=== PATIENT | male | born 1960 | race Caucasian/White ===

== ENCOUNTER → 2019-02-02 16:15 | Outpatient (CLI) | payer OTHER, SELFPAY ==
[2019-02-02 16:49] LABS: Add Manual Diff / Slide Review NO; Basophils Absolute Auto 0 /uL (0-100); Basophils Percent Auto 0.4 % (0-2); Eosinophils Absolute Auto 200 /uL (0-450); Hematocrit 48.2 % (41-53); Lymphocytes Absolute Auto 3100 /uL (1100-4500); Lymphocytes Percent Auto 37.4 % (25-40); Mean Corpuscular HGB Conc 33.1 % (30-36); Mean Corpuscular Hemoglobin 29.3 PG (26-34); Mean Corpuscular Volume 88.5 fL (80-100); Monocytes Absolute Auto 700 /uL (0-900); Monocytes Percent Auto 9.1 % (3-14); Neutrophils Absolute Auto 4100 /uL (1500-7000); Neutrophils Percent Auto 50.1 % (50-75); Platelet Count 214 X10^3/uL (150-400); Red Blood Cell Count 5.44 X10^6/uL (4.5-5.9); Red Cell Distribution Width 14.3 % (11.6-14.8); White Blood Cell Count 8.2 X10^3/uL (4.5-11.0)
[2019-02-02 18:13] LABS: Alanine Aminotransferase 45 IU/L (21-72); Albumin 4.7 g/dL (3.5-5.0); Albumin Globulin Ratio 1.6 (1.0-2.8); Alkaline Phosphatase 87 U/L (38-126); Aspartate Aminotransferase 43 IU/L (17-59); BUN Creatinine Ratio 21.3 (6-22); Bilirubin Total 0.5 mg/dL (0.2-1.3); Blood Urea Nitrogen 17 mg/dL (9-20); Calcium 9.1 mg/dL (8.4-10.2); Carbon Dioxide 26 mmol/L (22-32); Chloride 102 mmol/L (98-107); Cholesterol 182 mg/dL (140-199); Estimated Glomerular Filt Rate > 60.0 mL/min (>60); Globulin 2.9 g/dL (1.7-4.1); Glucose 82 mg/dL (70-100); HDL Cholesterol 51 mg/dL (40-60); HEMOLYSIS < 15 (0-50); LDL Cholesterol Calculated 113 mg/dL (<100); Potassium 4.2 mmol/L (3.4-5.1); Sodium 139 mmol/L (137-145); Total Protein 7.6 g/dL (6.3-8.2); Triglycerides 89 mg/dL (35-150)
[2019-02-02 18:43] LABS: Prostate Specific Antigen Scrn 1.94 ng/mL (0.1-4.0)
[2019-02-02 19:01] LABS: Hep C Virus Ab w/Reflex Quant NEGATIVE s/c (NEGATIVE)
== END ==
PROVIDERS: PCP Internal Medicine; Visit Provider Internal Medicine
DX: Z00.00 Encounter for general adult medical examination without abnormal findings (principal); Z12.5 Encounter for screening for malignant neoplasm of prostate; Z11.59 Encounter for screening for other viral diseases; R53.83 Other fatigue; N40.1 Benign prostatic hyperplasia with lower urinary tract symptoms; R35.1 Nocturia
CPT/HCPCS: 36415; 80053; 80061; 85025; 86803; G0103

== ENCOUNTER 2021-10-27 18:27 | Emergency (ER) | payer OTHER, SELFPAY ==
[2021-10-27 18:30] VITALS: BP 168/92; PULSE 67; RESP 18; TEMP 36.6; O2SAT 97; BMI 27.8
--- NOTE | 2021-10-27 19:47 | ED_ITS ---
HPI - Epistaxis General Chief complaint: Nasal Problem Stated complaint: Chronic Nose Bleed Time Seen by Provider: 10/27/21 19:41 Source: patient Mode of arrival: Ambulatory History of Present Illness HPI Narrative: 61-year-old gentle with no significant medical history and no diagnosed blood pressure issues presents with 2 weeks of intermittent epistaxis. He does not describe any recent upper respiratory infection, no nasal sprays no picking or trauma. He notes that he will have minor amount of oozing in over the last 2 days he has had 2 episodes each of fairly significant bleeding eventually controlled with pressure. He has had symptoms like this previously and had a bleeding area identified and cauterized that seem to work for a number of years. He describes otherwise clotting well, no frequent bruising no bleeding from his gums no black or bloody stools he is not on blood thinners. He has had no recent headaches, fever, cough, abdominal pain, vomiting or diarrhea. Related Data Allergies Allergy/AdvReac Type Severity Reaction Status Date / Time No Known Drug Allergies Allergy Verified 10/27/21 18:35 Review of Systems Review of Systems Narrative: Remainder of complete review of systems is otherwise unremarkable except for that included in the HPI. Patient History Social History Smoking Status: Never smoker Smoking Status: Never smoker alcohol intake frequency: a few times a week Substance Use Type: does not use Exam Narrative Exam Narrative: General: Healthy appearing, in no acute distress. Able to give a complete and coherent history. Well-nourished well-developed HEENT: Moist mucous membranes, normal sclera with reactive pupils, nasal mucosa is examined and seems relatively unremarkable. No blood clots or obvious area of bleeding are appreciated Neck: No JVD, supple Respiratory: Lungs are clear to auscultation, no wheezing no rales no rhonchi. Full and symmetrical air movement Cardiac: Regular rate and rhythm no murmurs no bruits Skin: Warm and dry, no rashes Neurologic: Grossly neurologically intact with no obvious asymmetries or abnormalities Extremities: No trauma, well perfused Psych: Cooperative, appropriate insight and affect Initial Vital Signs Initial Vital Signs: Vital Signs Temperature 97.9 F 10/27/21 18:30 Pulse Rate 67 10/27/21 18:30 Respiratory Rate 18 10/27/21 18:30 Blood Pressure 168/92 H 10/27/21 18:30 Pulse Oximetry 97 10/27/21 18:30 Course Orders Ordered: ED Orders 10/27/21 20:00 CBC with manual diff [Complete Blood Count MAN DIFF] Stat CMP [Comprehensive Metabolic Panel] Stat Vital Signs Vital signs: Vital Signs - 8 hr 10/27/21 18:30 Temperature 97.9 F Pulse Rate 67 Respiratory Rate 18 Blood Pressure 168/92 H Pulse Oximetry 97 MDM - Epistaxis Lab Data Result diagrams: 10/27/21 20:00 10/27/21 20:00 Labs: Lab Results 10/27/21 10/27/21 Range/Units 20:00 20:00 WBC 7.8 (4.5-11.0) X10^3/uL RBC 5.13 (4.5-5.9) X10^6/uL Hgb 15.4 (13.5-17.5) g/dL Hct 44.9 (41-53) % MCV 87.5 (80-100) fL MCH 30.0 (26-34) PG MCHC 34.3 (30-36) % RDW 14.3 (11.6-14.8) % Plt Count 203 (150-400) X10^3/uL Sodium 137 (137-145) mmol/L Potassium 4.5 (3.4-5.1) mmol/L Chloride 102 (98-107) mmol/L Carbon Dioxide 29 (22-32) mmol/L BUN 14 (9-20) mg/dL Creatinine 0.82 (0.66-1.25) mg/dL Estimated GFR > 60.0 (>60) mL/min BUN/Creatinine Ratio 17.1 (6-22) Glucose 92 (80-110) mg/dL Calcium 9.2 (8.4-10.2) mg/dL Total Bilirubin 0.5 (0.2-1.3) mg/dL AST 41 (17-59) IU/L ALT 24 (<50) IU/L Alkaline Phosphatase 83 (38-126) U/L Total Protein 7.4 (6.3-8.2) g/dL Albumin 4.5 (3.5-5.0) g/dL Globulin 2.9 (1.7-4.1) g/dL Albumin/Globulin Ratio 1.6 (1.0-2.8) MDM Narrative Medical decision making narrative: 61-year-old gentleman with 2 weeks of intermittent nose bleeds with 2 over last 48 hours of been more prolific. He had similar issues before that resolved nicely for a number of years after cautery. Comes in for further evaluation. Blood pressure is slightly elevated will ask him to check it as an outpatient. I do not see any obvious points or sites to cauterize at this time and he is not having any active bleeding. No evidence of bleeding dyscrasias, chemistry or platelet abnormalities. Reassurance is given recommended that he follow-up with ENT. He is safe for home discharge Discharge Plan Departure Patient Disposition: Home Clinical Impression: Epistaxis Instructions: DI for Nosebleed Activity Restrictions/Additional Instructions: Thank you for coming in today On your exam in the emergency room today I did not see any spots that look like they needed to be cauterized. Your blood work was very reassuring normal. No obvious bleeding abnormalities and a normal platelet count. Your blood pressure was slightly elevated and this might be contributing to the nosebleeds. I would recommend that you buy a blood pressure cuff and check your blood pressures daily to see if this truly is a diagnosis that needs to be further addressed. Please take in the daily blood pressures to review with her primary care physician. Regarding the nosebleeds, following up with [facility] ear nose and throat ph ysicians at [phone] would be appropriate. That you nose and throat surgeons can look deeper anterior nose and have the appropriate tools to see the anatomy a bit better and will be able to do any cautery if they think that that is appropriate. In the meantime, I would recommend getting some Afrin. If your having an acute nose bleed using a score to Afrin to the area will help constrict the blood vessel so that the bleeding stops sooner. If you can not get the bleeding to stop, you do need to come back to the emergency department I wish you the best Referrals: Vero Danielson MD [Primary Care Provider] -
[2021-10-27 20:13] LABS: Hematocrit 44.9 % (41-53); Hemoglobin 15.4 g/dL (13.5-17.5); Mean Corpuscular HGB Conc 34.3 % (30-36); Mean Corpuscular Volume 87.5 fL (80-100); Platelet Count 203 X10^3/uL (150-400); Red Blood Cell Count 5.13 X10^6/uL (4.5-5.9); Red Cell Distribution Width 14.3 % (11.6-14.8); White Blood Cell Count 7.8 X10^3/uL (4.5-11.0)
[2021-10-27 20:22] LABS: Alanine Aminotransferase 24 IU/L (<50); Albumin 4.5 g/dL (3.5-5.0); Albumin Globulin Ratio 1.6 (1.0-2.8); Alkaline Phosphatase 83 U/L (38-126); Aspartate Aminotransferase 41 IU/L (17-59); BUN Creatinine Ratio 17.1 (6-22); Bilirubin Total 0.5 mg/dL (0.2-1.3); Blood Urea Nitrogen 14 mg/dL (9-20); Calcium 9.2 mg/dL (8.4-10.2); Carbon Dioxide 29 mmol/L (22-32); Chloride 102 mmol/L (98-107); Estimated Glomerular Filt Rate > 60.0 mL/min (>60); Globulin 2.9 g/dL (1.7-4.1); Glucose 92 mg/dL (80-110); HEMOLYSIS < 15 (0-50); Potassium 4.5 mmol/L (3.4-5.1); Sodium 137 mmol/L (137-145); Total Protein 7.4 g/dL (6.3-8.2)
[2021-10-27 20:43] VITALS: BP 139/67; PULSE 59; RESP 16; O2SAT 99
[2021-10-27 20:49] LABS: Neutrophils Absolute Manual 4290 /uL (3000-5900); RBC Morphology Normal Morphology; Total Cells Counted 100
== END 2021-10-27 21:03 | disposition home or self-care (01) ==
PROVIDERS: Emergency Provider Emergency Medicine; PCP Internal Medicine
DX: R04.0 Epistaxis (principal)
CPT/HCPCS: 36415; 80053; 85025; 99283

== ENCOUNTER → 2024-03-03 15:43 | Outpatient (CLI) | payer OTHER, SELFPAY ==
[2024-03-05 09:56] LABS: PSA, Total 2.3 ng/mL (0.0-4.0)
== END ==
PROVIDERS: PCP Internal Medicine; Referring Provider Internal Medicine; Visit Provider Internal Medicine
DX: N40.1 Benign prostatic hyperplasia with lower urinary tract symptoms (principal); R39.11 Hesitancy of micturition
CPT/HCPCS: 36415; 84153; 84154

== ENCOUNTER → 2024-03-03 16:43 | Outpatient (CLI) | payer OTHER, SELFPAY ==
--- NOTE | 2024-03-03 16:47 | DI.RAD.S_ITS ---
PROCEDURE: XR THORACIC SPINE 3V INDICATIONS: LOW BACK PAIN TECHNIQUE: 3 views of the thoracic spine were acquired. COMPARISON: None. FINDINGS: Bones: No acute fractures or dislocations. No suspicious bony lesions. 12 pairs of ribs are noted, and appear intact where visualized. Mild degenerative endplate changes. Soft tissues: No paravertebral stripe thickening. IMPRESSION: No acute osseous abnormality. If symptoms persist or if there is continued clinical concern, cross-sectional imaging such as MRI or CT may be helpful for further evaluation. Approved by: Caleb Jonas M.D. on 03/03/2024 at 20:39
== END ==
PROVIDERS: PCP Internal Medicine; Referring Provider Internal Medicine; Visit Provider Internal Medicine
DX: M54.6 Pain in thoracic spine (principal); N40.1 Benign prostatic hyperplasia with lower urinary tract symptoms; R39.11 Hesitancy of micturition
CPT/HCPCS: 36415; 72072; 84153; 84154

== ENCOUNTER → 2025-02-23 07:52 | Outpatient (CLI) | payer OTHER, SELFPAY ==
[2025-02-23 08:36] LABS: Add Manual Diff / Slide Review NO; Basophils Absolute Auto 0 /uL (0-100); Basophils Percent Auto 0.5 % (0-2); Eosinophils Absolute Auto 300 /uL (0-450); Eosinophils Percent Auto 4.7 % (2-4); Hematocrit 41.4 % (41-53); Hemoglobin 13.8 g/dL (13.5-17.5); Lymphocytes Absolute Auto 1900 /uL (1100-4500); Lymphocytes Percent Auto 32.7 % (25-40); Mean Corpuscular HGB Conc 33.3 % (30-36); Mean Corpuscular Hemoglobin 27.9 PG (26-34); Mean Corpuscular Volume 83.6 fL (80-100); Monocytes Absolute Auto 600 /uL (0-900); Monocytes Percent Auto 9.9 % (3-14); Neutrophils Absolute Auto 3000 /uL (1500-7000); Neutrophils Percent Auto 52.2 % (50-75); Platelet Count 218 X10^3/uL (150-400); Red Blood Cell Count 4.95 X10^6/uL (4.5-5.9); White Blood Cell Count 5.8 X10^3/uL (4.5-11.0)
[2025-02-23 08:56] LABS: Alanine Aminotransferase 32 IU/L (<50); Albumin 4.6 g/dL (3.5-5.0); Albumin Globulin Ratio 1.6 (1.0-2.8); Alkaline Phosphatase 89 U/L (38-126); Aspartate Aminotransferase 42 IU/L (17-59); BUN Creatinine Ratio 16.5 (6-22); Bilirubin Total 0.7 mg/dL (0.2-1.3); Blood Urea Nitrogen 15 mg/dL (9-20); Calcium 9.4 mg/dL (8.4-10.2); Carbon Dioxide 25 mmol/L (22-32); Chloride 104 mmol/L (98-107); Cholesterol 184 mg/dL (140-199); Estimated Glomerular Filt Rate > 60 mL/min (>60); Globulin 2.8 g/dL (1.7-4.1); Glucose 96 mg/dL (80-110); HDL Cholesterol 48 mg/dL (40-60); HEMOLYSIS < 15 (0-50); LDL Cholesterol Calculated 116 mg/dL (<100); Potassium 4.5 mmol/L (3.4-5.1); Sodium 137 mmol/L (137-145); Total Protein 7.4 g/dL (6.3-8.2); Triglycerides 100 mg/dL (35-150)
[2025-02-23 09:26] LABS: Prostate Specific Antigen 3.75 ng/mL (0.10-4.00)
[2025-02-23 09:28] LABS: Testosterone 573 ng/dL (71.8-623)
[2025-02-23 09:38] LABS: HIV 1 & 2 Ab/Ag 4th Gen Combo NEGATIVE (NEGATIVE)
[2025-02-24 05:41] LABS: Insulin Level Total 11.6 uIU/mL (2.6-24.9)
== END ==
PROVIDERS: PCP Internal Medicine; Referring Provider Internal Medicine; Visit Provider Internal Medicine
DX: Z13.6 Encounter for screening for cardiovascular disorders (principal); R53.83 Other fatigue; N40.1 Benign prostatic hyperplasia with lower urinary tract symptoms; Z11.4 Encounter for screening for human immunodeficiency virus [HIV]; R39.12 Poor urinary stream
CPT/HCPCS: 36415; 80053; 80061; 83525; 84153; 84403; 85025; 87389

== ENCOUNTER 2025-03-11 08:57 | Observation (INO) | payer OTHER, SELFPAY ==
[2025-03-11] VITALS (21 sets, daily range): BP systolic 128–197; BP diastolic 69–97; PULSE 61–82; RESP 10–25; TEMP 36.3–36.5; O2SAT 96–100; BMI 27.8
[2025-03-11 09:46] LABS: Urine Volume 10mL (spun)
[2025-03-11] MEDS: MORPHINE 2 MG/ML INJ IV (09:46)
[2025-03-11] MEDS: SODIUM CHLORIDE 0.9% 1,000 ML 1000 ML IV (09:47)
[2025-03-11 09:50] LABS: Bacteria Urine None Seen; Culture Indicated Urine Specimen Cultured; RBC Urine 30-100/HPF (0-5/HPF); Squamous Epithelial Cell Urine None Seen (0-5/HPF); WBC Urine 1-5/HPF (0-5/HPF)
[2025-03-11 09:51] LABS: Add Manual Diff / Slide Review NO; Basophils Absolute Auto 0 /uL (0-100); Basophils Percent Auto 0.4 % (0-2); Eosinophils Absolute Auto 200 /uL (0-450); Eosinophils Percent Auto 2.4 % (2-4); Hematocrit 42.6 % (41-53); Hemoglobin 14.3 g/dL (13.5-17.5); Lymphocytes Absolute Auto 2100 /uL (1100-4500); Lymphocytes Percent Auto 26.6 % (25-40); Mean Corpuscular HGB Conc 33.7 % (30-36); Mean Corpuscular Hemoglobin 27.9 PG (26-34); Monocytes Absolute Auto 600 /uL (0-900); Monocytes Percent Auto 7.9 % (3-14); Neutrophils Absolute Auto 4900 /uL (1500-7000); Neutrophils Percent Auto 62.7 % (50-75); Platelet Count 233 X10^3/uL (150-400); Red Blood Cell Count 5.14 X10^6/uL (4.5-5.9); White Blood Cell Count 7.8 X10^3/uL (4.5-11.0)
[2025-03-11 10:02] LABS: Alanine Aminotransferase 27 IU/L (<50); Albumin 4.8 g/dL (3.5-5.0); Albumin Globulin Ratio 1.5 (1.0-2.8); Alkaline Phosphatase 81 U/L (38-126); Aspartate Aminotransferase 41 IU/L (17-59); BUN Creatinine Ratio 13.2 (6-22); Bilirubin Total 0.6 mg/dL (0.2-1.3); Blood Urea Nitrogen 14 mg/dL (9-20); Calcium 9.4 mg/dL (8.4-10.2); Carbon Dioxide 26 mmol/L (22-32); Chloride 103 mmol/L (98-107); Estimated Glomerular Filt Rate > 60 mL/min (>60); Globulin 3.1 g/dL (1.7-4.1); Glucose 134 mg/dL (70-99); HEMOLYSIS < 15 (0-50); Potassium 3.7 mmol/L (3.4-5.1); Sodium 139 mmol/L (137-145); Total Protein 7.9 g/dL (6.3-8.2)
--- NOTE | 2025-03-11 10:11 | ED.BACK ---
HPI - Back Pain/Injury General Chief Complaint: Back Pain/Injury Stated Complaint: Low Left Back Pain Time Seen by Provider: 03/11/25 10:06 Source: patient History of Present Illness HPI Narrative: Patient here for sudden onset left flank pain radiating left lower quadrant 7:00 p.m. last night. Has had off and on hematuria which he states is not new. Has had nausea but no vomiting. Pain is nonreproducible. No urinary urgency or frequency. No prior history of kidney stones. No prior history of aortic dissection or aneurysm. 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 Related Data Home Medications Medication Instructions Recorded Confirmed clobetasol 0.05 % topical ointment topical BID PRN Rash 03/11/25 ibuprofen 200 mg capsule 400 mg PO Q6H 03/11/25 03/11/25 Previous Rx's Medication Instructions Recorded oxycodone 5 mg tablet 5 mg PO Q8H PRN pain (scale score 03/11/25 7-10) #10 tabs tamsulosin 0.4 mg capsule 0.4 mg PO DAILY #60 caps 03/11/25 Allergies Allergy/AdvReac Type Severity Reaction Status Date / Time No Known Drug Allergies Allergy Verified 03/13/25 05:18 Review of Systems Review of Systems Narrative: GENERAL: Negative chills, fatigue, malaise, fever, sweats. HEENT: Negative sinus pain, ear pain, sore throat RESPIRATORY: Negative dyspnea, cough CARDIOVASCULAR: Negative chest pain, palpitations GASTROINTESTINAL: Negative vomiting, positive flank pain, nausea, abdominal pain : Negative dysuria, frequency, hematuria MUSCULOSKELETAL: Negative muscle or bony pain SKIN: Negative rash, skin lesions NEUROLOGIC: Negative weakness, numbness ROS Unobtainable: All systems reviewed & are unremarkable except as noted in HPI and below Patient History Social History household members: spouse alcohol intake: current Smoking Status: Unknown if ever smoked alcohol intake frequency: a few times a week Exam Narrative Exam Narrative: GENERAL: in no distress, not toxic not dyspneic HEAD: Normocephalic. EYES: Pupils equal round ENT: Mucous membranes moist. NECK: Trachea midline. CARDIOVASCULAR: Regular rate and rhythm RESPIRATORY: Clear to auscultation. Breath sounds equal bilaterally. No wheezes, rales, or rhonchi. GASTROINTESTINAL: Abdomen soft, non-tender, abdomen is nontender no peritoneal signs no guarding no rebound no CVA tenderness no pain out of portion exam. Bowel sounds are present. EXTREMITIES: No gross deformities. BACK: No flank tenderness. NEURO: AOx4. Clear speech SKIN: Warm and dry PSYCH: Not anxious, is cooperative Initial Vital Signs Initial Vital Signs: Vital Signs Temperature 97.6 F 03/11/25 09:27 Pulse Rate 66 03/11/25 09:27 Respiratory Rate 16 03/11/25 09:27 Blood Pressure 197/97 H 03/11/25 09:27 Pulse Oximetry 100 03/11/25 09:27 Oxygen Delivery Method Room Air 03/11/25 09:27 Course Orders Ordered: Discontinued Medications Acetaminophen (Acetaminophen 325 Mg Tablet) 975 mg PO Q6H PRN PRN Reason: Pain, Mild (1-3) Fentanyl (Fentanyl 100 Mcg/2 Ml Inj) 100 mcg IV NOW ONE Stop: 03/11/25 10:10 Last Admin: 03/11/25 10:14 Dose: 100 mcg Documented By: CATHI Fentanyl (Fentanyl 100 Mcg/2 Ml Inj) 0 mcg IV Q5MIN PRN PRN Reason: Pain, Severe (7-10) Hydromorphone HCl (Hydromorphone 1 Mg Inj) 0 mg IV Q5MIN PRN PRN Reason: Pain, Mild (1-3) Hydromorphone HCl (Hydromorphone 1 Mg Inj) 0.5 mg IV Q2H PRN PRN Reason: Pain, Severe (7-10) Hydroxyzine HCl (Hydroxyzine 50 Mg/Ml Inj) 25 mg IM NOW PRN PRN Reason: Pain, Mild (1-3) Sodium Chloride (Normal Saline 0.9%) 1,000 mls @ 1,000 mls/hr IV BOLUS ONE Stop: 03/11/25 10:32 Last Infusion: 03/11/25 11:23 Dose: Infused Documented By: Admin: 03/11/25 09:47 Dose: 1,000 mls/hr Documented By: BLAKE Cefazolin Sodium/Dextrose (Ancef) 100 mls @ 200 mls/hr IV NOW ONE Stop: 03/11/25 13:44 Last Admin: 03/11/25 15:32 Dose: 200 mls/hr Documented By: TED Lactated Ringer's (Lactated Ringers) 1,000 mls @ 42 mls/hr IV CONT EMILY Last Admin: 03/11/25 13:44 Dose: 42 mls/hr Documented By: TC Acetaminophen (Ofirmev) 1,000 mg in 100 mls @ 400 mls/hr IV NOW ONE Stop: 03/11/25 16:03 Last Infusion: 03/11/25 16:44 Dose: Infused Documented By: Admin: 03/11/25 15:47 Dose: 400 mls/hr Documented By: TED Iopamidol (Iopamidol 30 Ml Vial) 30 ml INJ NOW ONE Stop: 03/11/25 15:50 Last Admin: 03/11/25 15:49 Dose: 30 ml Documented By: BB Ketorolac Tromethamine (Ketorolac 30 Mg/Ml Vial) 15 mg IV NOW ONE Stop: 03/11/25 11:10 Last Admin: 03/11/25 11:29 Dose: 15 mg Documented By: AI Metoclopramide HCl (Metoclopramide 10 Mg/2 Ml Inj) 10 mg IV NOW PRN PRN Reason: Nausea And Vomiting Morphine Sulfate (Morphine 2 Mg/Ml Inj) 2 mg IV NOW ONE Stop: 03/11/25 09:34 Last Admin: 03/11/25 09:46 Dose: 2 mg Documented By: RB Ondansetron HCl (Ondansetron 4 Mg/2 Ml Inj) 4 mg IV NOW ONE Stop: 03/11/25 10:16 Last Admin: 03/11/25 10:17 Dose: 4 mg Documented By: SPF Ondansetron HCl (Ondansetron 4 Mg/2 Ml Inj) 4 mg IV NOW PRN PRN Reason: Nausea And Vomiting Ondansetron HCl (Ondansetron 4 Mg/2 Ml Inj) 4 mg IV Q4H PRN PRN Reason: Nausea And Vomiting Oxycodone HCl (Oxycodone Ir 5 Mg Tablet) 5 mg PO PACUNOW PRN PRN Reason: Mild or moderate pain Oxycodone HCl (Oxycodone Ir 5 Mg Tablet) 5 mg PO Q4H PRN PRN Reason: Pain, Moderate (4-6) Oxycodone HCl (Oxycodone Ir 10 Mg Tablet) 10 mg PO Q4HR PRN PRN Reason: Pain, Severe (7-10) Prochlorperazine (Prochlorperazine 10 Mg/2 Ml Vial) 10 mg IV NOW ONE Stop: 03/11/25 11:42 Last Admin: 03/11/25 11:51 Dose: Not Given Documented By: ADILENE Tamsulosin HCl (Tamsulosin 0.4 Mg Capsule) 0.4 mg PO NOW ONE Stop: 03/11/25 11:13 Last Admin: 03/11/25 11:30 Dose: 0.4 mg Documented By: ADILENE Vital Signs Vital signs: Vital Signs - 8 hr 03/11/25 09:27 03/11/25 09:42 03/11/25 09:49 Temperature 97.6 F Pulse Rate 66 72 Respiratory Rate 16 Blood Pressure 197/97 H 196/91 H Pulse Oximetry 100 100 Oxygen Delivery Method Room Air 03/11/25 09:49 03/11/25 10:00 03/11/25 10:01 Temperature Pulse Rate 65 66 Respiratory Rate 20 14 Blood Pressure 193/81 H Pulse Oximetry 100 100 Oxygen Delivery Method 03/11/25 10:01 03/11/25 10:31 03/11/25 10:32 Temperature Pulse Rate 68 74 77 Respiratory Rate 17 21 20 Blood Pressure Pulse Oximetry 100 100 100 Oxygen Delivery Method 03/11/25 10:32 03/11/25 11:00 03/11/25 11:00 Temperature Pulse Rate 65 Respiratory Rate 16 Blood Pressure 170/88 H 147/72 H Pulse Oximetry 98 Oxygen Delivery Method Room Air 03/11/25 11:30 03/11/25 12:00 Temperature Pulse Rate 71 71 Respiratory Rate 20 20 Blood Pressure 143/82 H 135/69 Pulse Oximetry 98 96 Oxygen Delivery Method Room Air Room Air MDM - Back Pain/Injury Lab Data 03/11/25 09:40 03/11/25 09:40 Labs: Lab Results 03/11/25 03/11/25 Range/Units 09:31 09:40 WBC 7.8 (4.5-11.0) X10^3/uL RBC 5.14 (4.5-5.9) X10^6/uL Hgb 14.3 (13.5-17.5) g/dL Hct 42.6 (41-53) % MCV 83.0 (80-100) fL MCH 27.9 (26-34) PG MCHC 33.7 (30-36) % RDW 15.0 H (11.6-14.8) % Plt Count 233 (150-400) X10^3/uL Neut % (Auto) 62.7 (50-75) % Lymph % (Auto) 26.6 (25-40) % [place] % (Auto) 7.9 (3-14) % Eos % (Auto) 2.4 (2-4) % Baso % (Auto) 0.4 (0-2) % Neut # (Auto) 4900 (3254-4487) /uL Lymph # (Auto) 2100 (7259-2948) /uL [place] # (Auto) 600 (0-900) /uL Eos # (Auto) 200 (0-450) /uL Baso # (Auto) 0 (0-100) /uL Sodium 139 (137-145) mmol/L Potassium 3.7 (3.4-5.1) mmol/L Chloride 103 (98-107) mmol/L Carbon Dioxide 26 (22-32) mmol/L BUN 14 (9-20) mg/dL Creatinine 1.06 (0.66-1.25) mg/dL Estimated GFR > 60 (>60) mL/min BUN/Creatinine Ratio 13.2 (6-22) Glucose 134 H (70-99) mg/dL Calcium 9.4 (8.4-10.2) mg/dL Total Bilirubin 0.6 (0.2-1.3) mg/dL AST 41 (17-59) IU/L ALT 27 (<50) IU/L Alkaline Phosphatase 81 (38-126) U/L Total Protein 7.9 (6.3-8.2) g/dL Albumin 4.8 (3.5-5.0) g/dL Globulin 3.1 (1.7-4.1) g/dL Albumin/Globulin Ratio 1.5 (1.0-2.8) Urine RBC 30-100/hpf H (0-5/HPF) Urine WBC 1-5/hpf (0-5/HPF) Ur Squamous Epith Cells None seen (0-5/HPF) Urine Bacteria None seen (None) Ur Culture Indicated? Specimen cultured Vol Urine Centrifuged 10ml (spun) Urine Dip Bedside Urine Glucose Negative Bedside Urine Bilirubin - Negative Bedside Urine Ketone - Negative Urine Specific [place] 1.030 Bedside Urine Occult Blood +++ Bedside Urine pH 5.5 Bedside Urine Protein +/- 15 Bedside Urine Urobilinogen - Negative Bedside Urine Nitrite - Negative Bedside Urine Leukocytes +/- [address] scan - abdomen/pelvis: Radiologist's Impression: [address] [address] [address] Scan Report Signed Patient: James Rendon MR#: [id number] : 1960 Acct:[id number] Age/Sex: 64 / M Date of Service: 03/11/25 Loc: ED Accession Number: [id number] Procedure: CT abdomen pelvis w con Ordering Provider: Norbert Rogers MD PROCEDURE: CT ABDOMEN PELVIS W CON INDICATIONS: Left lower quadrant pain TECHNIQUE: After the administration of intravenous contrast, axial sections acquired from the lung bases to the pubic symphysis. Coronal and sagittal reformats were performed. For radiation dose reduction, the following was used: automated exposure control, adjustment of mA and/or kV according to patient size. COMPARISON: None. FINDINGS: Image quality: Diagnostic. Lower Chest: No significant findings. ABDOMEN: Liver: No solid mass. Gallbladder: No radiopaque gallstones or wall thickening. Biliary ducts: No biliary dilation. Pancreas: No ductal dilation. Spleen: Size is within normal limits. Adrenal Glands: No adrenal nodules. Kidneys and Ureters: 9 mm calculus is seen in the proximal left ureter at the ureteropelvic junction (1500 Hounsfield units). Mild left hydronephrosis. Additional 2 mm nonobstructing calculus at the inferior pole of the left kidney. Mild peripelvic fat stranding. No right hydronephrosis. No solid mass. No complex renal cystic lesion which requires follow up. Stomach and Bowel: Normal colonic caliber, without significant wall thickening. Normal appendix. Small bowel loops and stomach are unremarkable. Peritoneum: No abnormal intraperitoneal fluid. No free air. Ventral Wall: No significant ventral hernia. Abdominal Nodes: No retroperitoneal or mesenteric adenopathy by size criteria. Vessels: Aorta and inferior vena cava are normal in size. PELVIS: Pelvic Organs: Prostate is enlarged. Bladder: No bladder wall thickening, accounting for underdistention. Pelvic Nodes: No enlarged lymph nodes. Miscellaneous: No inguinal hernias are seen. Bones: No aggressive osseous abnormality. IMPRESSION: 1. Left proximal ureteral 9 mm calculus at the ureteropelvic junction with mild left hydronephrosis. 2. Additional nonobstructing 2 mm left renal calculus. Approved by: Caleb Jonas M.D. on 03/11/2025 at 11:04 [facility] Narrative Medical decision making narrative: Patient here for sudden onset left flank pain radiating left lower quadrant 7:00 p.m. last night. Has had off and on hematuria which he states is not new. Has had nausea but no vomiting. Pain is nonreproducible. No urinary urgency or frequency. No prior history of kidney stones. No prior history of aortic dissection or aneurysm. 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 After history and exam, morphine Zofran normal saline, CT KUB urinalysis CBC [facility] Medical records reviewed: No recent visit for this complaint Differential considered: Includes but not limited to kidney stone ureteral stone UTI dissection diverticulitis Lab Test results independently reviewed as above. Pertinent findings: Urinalysis positive blood, WBC 7.8 hemoglobin 14.3 sodium 139 potassium 3.7 BUN 14 creatinine 1.06 GFR greater than 60 Imaging studies independently reviewed: CT KUB, 9 mm ureteral stent Consultations: 12:[address] Viera, urology, at bedside to take patient to OR this afternoon. He has reviewed with patient findings and plans for stenting at 3:00 p.m. today. Re-evaluations: 12:30 p.m.. Pain is much better. Patient understands will likely need surgery today. Discussion: Appropriate for admission for urology procedure. Diagnosis: Ureteral stent Discharge Plan Departure Patient Disposition: Admitted to Surgery Clinical Impression: Left ureteral stone Admit Date/Time: 03/11/25 12:56 Admit Provider: Cm Rubio
[2025-03-11] MEDS: fentaNYL 100 MCG/2 ML INJ IV (10:14)
[2025-03-11] MEDS: ONDANSETRON 4 MG/2 ML INJ IV (10:17)
--- NOTE | 2025-03-11 10:33 | PC.NURSE ---
Patient returns from imaging and this RN reassessed pain post fentnyl administration and patient states 10/10 left lower back pain. This RN informed provider of patient pain and no new orders given at this time.
[2025-03-11] MEDS: KETOROLAC 30 MG/ML VIAL 15 MG IV (11:29)
[2025-03-11] MEDS: TAMSULOSIN 0.4 MG CAPSULE PO (11:30)
--- NOTE | 2025-03-11 13:08 | PM.CN.IH.1 ---
History of Present Illness Consult details Date Patient Seen: 03/11/25 Time Patient Seen: 13:08 Chief complaint: LOW LEFT BACK PAIN Reason for consult: Left 9mm proximal ureterolith Narrative: 64 y/o M presented to ER for evaluation of severe left flank pain of more than 12 hour duration. Briefly, he noted severe left flank pain that would radiate down into the left lower abdominal quadrant a little more than 12 hours ago. He also admits to nausea and hematuria, otherwise no vomiting. He has never had any kidney stones prior. His evaluation in the ER was notable for a WBC of 7.8, sCr of 1.06 and an unremarkable UA. His CT KUB noted a 9mm left proximal ureterolith with mild left hydronephrosis and a delayed left nephrogram. Urology was consulted regarding further management as his pain remains difficult to control. Meds Home Medications and Allergies Allergies Allergy/AdvReac Type Severity Reaction Status Date / Time No Known Drug Allergies Allergy Verified 10/27/21 18:35 Review of Systems Review of Systems Narrative: CONSTITUTIONAL: Denies weight loss, fevers, chills. HEENT: Denies change in vision, hearing. RESP: Denies SOB, cough. CV: Denies palpations, CP. GI: Denies vomiting, diarrhea. : Denies dysuria, inability to void. MSK: Denies myalgia, joint pain. SKIN: Denies rash, pruritus. NEURO: Denies headache, syncope. PSYCH: Denies recent change in mood, anxiety, depression. Exam Vital Signs (past 8 hours): - 03/11/25 09:27 03/11/25 09:42 03/11/25 09:49 Temperature 97.6 F Pulse Rate 66 72 Respiratory Rate 16 Blood Pressure 197/97 H 196/91 H Pulse Oximetry 100 100 Oxygen Delivery Method Room Air 03/11/25 09:49 03/11/25 10:00 03/11/25 10:01 Temperature Pulse Rate 65 66 Respiratory Rate 20 14 Blood Pressure 193/81 H Pulse Oximetry 100 100 Oxygen Delivery Method 03/11/25 10:01 03/11/25 10:31 03/11/25 10:32 Temperature Pulse Rate 68 74 77 Respiratory Rate 17 21 20 Blood Pressure Pulse Oximetry 100 100 100 Oxygen Delivery Method 03/11/25 10:32 03/11/25 11:00 03/11/25 11:00 Temperature Pulse Rate 65 Respiratory Rate 16 Blood Pressure 170/88 H 147/72 H Pulse Oximetry 98 Oxygen Delivery Method Room Air 03/11/25 11:30 03/11/25 12:00 03/11/25 12:17 Temperature Pulse Rate 71 71 67 Respiratory Rate 20 20 13 Blood Pressure 143/82 H 135/69 Pulse Oximetry 98 96 98 Oxygen Delivery Method Room Air Room Air 03/11/25 12:17 03/11/25 12:30 03/11/25 12:30 Temperature Pulse Rate 69 Respiratory Rate 13 Blood Pressure 132/75 128/72 Pulse Oximetry 96 Oxygen Delivery Method 03/11/25 13:00 03/11/25 13:01 03/11/25 13:01 Temperature Pulse Rate 71 70 Respiratory Rate 25 H 24 Blood Pressure 160/75 H Pulse Oximetry 100 99 Oxygen Delivery Method Oxygen Delivery Method Room Air Narrative Exam Narrative: GEN: Alert and oriented X3. No acute distress. Well-nourished. EYES: PERRLA, EOMI. HENT: Moist mucus membranes, no scleral icterus, normal neck ROM. RESP: Unlabored breathing, equal rise and fall of chest bilaterally, no cyanosis appreciated. CV: No peripheral edema, unremarkable heart rate. ABD: Soft, non-tender, non-distended, no palpable masses. : No CVAT bilaterally. EXT: No edema, clubbing or cyanosis. SKIN: No rashes or lesions. NEURO: No focal neurologic deficits, CN II-XII grossly intact. PSYCH: Cooperative, appropriate mood and affect. Objective Labs 03/11/25 09:40 03/11/25 09:40 Labs: Laboratory Results - last 24 hr 03/11/25 03/11/25 09:31 09:40 WBC 7.8 RBC 5.14 Hgb 14.3 Hct 42.6 MCV 83.0 MCH 27.9 MCHC 33.7 RDW 15.0 H Plt Count 233 Neut % (Auto) 62.7 Lymph % (Auto) 26.6 Garfield % (Auto) 7.9 Eos % (Auto) 2.4 Baso % (Auto) 0.4 Neut # (Auto) 4900 Lymph # (Auto) 2100 Garfield # (Auto) 600 Eos # (Auto) 200 Baso # (Auto) 0 Sodium 139 Potassium 3.7 Chloride 103 Carbon Dioxide 26 BUN 14 Creatinine 1.06 Estimated GFR > 60 BUN/Creatinine Ratio 13.2 Glucose 134 H Calcium 9.4 Total Bilirubin 0.6 AST 41 ALT 27 Alkaline Phosphatase 81 Total Protein 7.9 Albumin 4.8 Globulin 3.1 Albumin/Globulin Ratio 1.5 Urine RBC 30-100/hpf H Urine WBC 1-5/hpf Ur Squamous Epith Cells None seen Urine Bacteria None seen Ur Culture Indicated? Specimen cultured Vol Urine Centrifuged 10ml (spun) PFS Tobacco & Substance Use Smoking Status: Unknown if ever smoked Assessment & Plan Assessment and plan (1) Left ureteral stone: Status: Acute Plan: 64 y/o M w/ a 9mm left proximal ureterolith w/ mild hydronephrosis and a delayed left nephrogram in the setting of difficult to control pain. Discussed treatment options to include continued medical expulsion therapy (not recommended given his difficult to control pain at the moment) vs cystoscopy with left ureteral stent placement. Discussed risks of the procedure to include pain, bleeding, infection, injury to urethra/bladder/ureter, inability to access the ureter requiring discussion with Interventional Radiology regarding a possible ureteral stent placement in an antegrade fashion vs a possible nephroureteral stent and/or percutaneous nephrostomy tube, urinary tract infection, need for emergent open repair of bladder and/or ureter. He indicated understanding and all of his questions were answered to his satisfaction. Informed consent was obtained today in the ER. Time-Based Coding :: [TOTAL MINUTES] spent with patient and on the chart (including review of chart, obtaining history, exam, reviewing outside data, placing orders, documenting exam and treatment plan, and counseling patient) on [DATE]. PROFEE Charge Codes Inpatient or Observation consultation: [id number]
[2025-03-11] MEDS: LACTATED RINGERS 1,000 ML 42 ML IV (13:44)
[2025-03-11] MEDS: CEFAZOLIN 2 GM/100 ML PREMIX 100 ML IV (15:32)
--- NOTE | 2025-03-11 15:40 | SUR.OPER ---
Lithotomy on padded OR bed, head on pillow, arms secured on padded arm boards at <90 degrees abduction. Legs secured in padded yellow fins stirrups.
[2025-03-11] MEDS: ACETAMINOPHEN IV 1,000 MG/100 ML VIAL 400 MG IV (15:47)
[2025-03-11] MEDS: iopamidoL 30 ML VIAL INJ (15:49)
--- NOTE | 2025-03-11 17:38 | PM.OP.1 ---
Operative Date/Time/Diagnoses Date of procedure: 03/11/25 Pre-op diagnosis: Left ureteral stone Post-op diagnosis: same Procedure & Clinicians Procedure: Cystoscopy Same procedure as scheduled: No (Unable to place left ureteral stent secondary to difficult anatomy) Indications: 64 y/o M w/ a 9mm left proximal ureterolith w/ mild hydronephrosis and a delayed left nephrogram in the setting of difficult to control pain. Surgeon: Cm Rubio Click Yes if Unassisted: Yes Anesthesia Type: General Operative Notes Findings: Moderate sized intravesical median lobe, unable to visualize left ureteral orifice Closure Type: not applicable Specimen(s): none sent Estimated Blood Loss (mL): 20 Blood products transfused: none Procedure in detail: Patient was identified in the preoperative holding area and consent confirmed. He was then brought to the operating room where general anesthesia was induced.? He was then placed in the low lithotomy position. He was then prepped and draped in the usual sterile fashion. A surgical timeout was conducted and all were in agreement. Access to the bladder was obtained via a 21Fr cystoscope.? He was noted to have coaptating lateral prostatic lobes w/ a moderate sized intravesical median lobe. His right ureteral orifice was easily visualized, however, his left ureteral orifice was never visualized despite spending more than 30 minutes to find it via a combination of the 30 degree lens, 70 degree lens and the 26Fr resectoscope w/ loop for tissue manipulation. One spot that could have been his left ureteral orifice was repeatedly probed with the 5Fr ureteral catheter as well as a 0.035 sensor tip ureteral guidewire, however, neither was able to be passed more than 1 cm in depth. Visibility continued to deteriorate throughout the procedure secondary to his large prostate and bleeding, therefore, the bladder was then drained and the cystoscope was removed.? Anesthesia was reversed, he was extubated in the OR and transferred to the PACU in stable condition for recovery. Complications: none Post-operative Condition: stable Disposition: PACU Plan for aftercare: Discharge home from PACU. Will place a referral for outpatient Interventional Radiology evaluation for a possible left percutaneous nephroureteral stent placement.
== END 2025-03-11 17:49 | disposition home or self-care (01) ==
LOC: ED 10:06 → AC 12:57
PROVIDERS: Admitting Provider Urology; Emergency Provider Emergency Medicine; PCP Internal Medicine; Referring Provider Emergency Medicine; Visit Provider Urology
PROC: 0TJB8ZZ Inspection of Bladder, Via Natural or Artificial Opening Endoscopic (ICD-10-PCS; CPT 52000; principal; 2025-03-11 15:00)
DX: N13.2 Hydronephrosis with renal and ureteral calculous obstruction (principal)
CPT/HCPCS: 52000; 36415; 74177; 76000; 80053; 81003; 81015; 85025; 87086; 96361; 96374; 96375; 99222; 99284; G0378; C2617; J0131; J0690; J1100; J1885; J2270; J2405; J2704; J3010; Q9967

== ENCOUNTER 2025-03-13 04:15 | Emergency (ER) | payer OTHER, SELFPAY ==
[2025-03-13] VITALS (20 sets, daily range): BP systolic 135–180; BP diastolic 79–86; PULSE 62–88; RESP 14–18; TEMP 36.7–36.9; O2SAT 95–100; BMI 27.8
[2025-03-13 04:50] LABS: Appearance Urine UA SL CLOUDY; Color Urine UA ORANGE; Leukocyte Esterase Urine UA TRACE (NEGATIVE); Occult Blood Urine UA 3+ (Negative); Specific Gravity Urine UA >=1.030 (1.000-1.035); pH Urine UA 5.5 (4.5-8.0)
[2025-03-13 04:56] LABS: RBC Urine >100/HPF (0-5/HPF); Urine Volume Low Vol <10mL (spun); WBC Urine 0-1/HPF (0-5/HPF)
[2025-03-13 04:57] LABS: Bacteria Urine Moderate (10-30); Squamous Epithelial Cell Urine 0-1 /HPF (0-5/HPF)
[2025-03-13 04:58] LABS: Culture Indicated Urine Specimen Cultured
--- NOTE | 2025-03-13 05:01 | DI.CT.S_ITS ---
PROCEDURE: CT ABDOMEN PELVIS W CON INDICATIONS: abdominal pain TECHNIQUE: After the administration of intravenous contrast, axial sections acquired from the lung bases to the pubic symphysis. Coronal and sagittal reformats were performed. For radiation dose reduction, the following was used: automated exposure control, adjustment of mA and/or kV according to patient size. COMPARISON: [facility], CT, CT ABDOMEN PELVIS W CON, 03/11/2025, 10:28. FINDINGS: Image quality: Diagnostic. Lower Chest: No significant findings. ABDOMEN: Liver: No solid mass. Gallbladder: No radiopaque gallstones or wall thickening. Biliary ducts: No biliary dilation. Pancreas: No ductal dilation. Spleen: Size is within normal limits. Adrenal Glands: No adrenal nodules. Kidneys and Ureters: Redemonstration of obstructing stone within the proximal left ureter measuring approximately 7 mm resulting in [id number]-[id number] upstream hydroureteronephrosis and a delayed left nephrogram. Hydronephrosis is similar compared to prior.. No solid mass. No complex renal cystic lesion which requires follow up. Stomach and Bowel: Small hiatal hernia. Normal colonic caliber, without significant wall thickening. Large stool burden. Normal appendix. Peritoneum: No abnormal intraperitoneal fluid. No free air. Ventral Wall: No significant ventral hernia. Abdominal Nodes: No retroperitoneal or mesenteric adenopathy by size criteria. Vessels: Aorta and inferior vena cava are normal in size. PELVIS: Pelvic Organs: Prostatomegaly. Bladder: No bladder wall thickening, accounting for underdistention. Small air within the urinary bladder, correlate with recent instrumentation. Pelvic Nodes: No enlarged lymph nodes. Miscellaneous: Small bilateral fat containing inguinal hernias are seen. Bones: No aggressive osseous abnormality. Mild degenerative changes of the spine. IMPRESSION: 1. Similar appearance of obstructing proximal left ureteral stone measuring 7 mm with resulting mild to moderate upstream hydroureteronephrosis and delayed left nephrogram. 2. Small air within the urinary bladder, correlate with recent instrumentation. 3. Large stool burden is increased compared to prior, correlate for constipation. Findings are concordant with preliminary interpretation provided by [facility]. Dictated by: Eyad Vo M.D. on 03/13/2025 at 7:06 Approved by: Eyad Vo M.D. on 03/13/2025 at 7:12
--- NOTE | 2025-03-13 05:01 | ED_ITS ---
HPI - Abdominal Pain <Humberto Miranda MD - Last Filed: 03/13/25 23:15> General Chief Complaint: Abdominal Pain Stated Complaint: abd pain Time Seen by Provider: 03/13/25 04:17 Source: EMS Mode of arrival: Ambulatory History of Present Illness HPI narrative: 64-year-old male with ongoing left lower quadrant and left flank pain, recent diagnosis of large 9 mm left proximal ureteral stone on 03/11/2025, local urologist Dr. Decker attempted ureteral placement but reportably was unable to pass ureteral stent through enlarged prostate, patient recalls discussion with urologists about outpatient IR consult for possible percutaneous nephrostomy tube placement, patient was sent home on pain medication, now having increasing pain. No fevers or chills. No weakness. No nausea or vomiting. Related Data Home Medications Medication Instructions Recorded Confirmed clobetasol 0.05 % topical ointment topical BID PRN Rash 03/11/25 ibuprofen 200 mg capsule 400 mg PO Q6H 03/11/25 03/11/25 Previous Rx's Medication Instructions Recorded oxycodone 5 mg tablet 5 mg PO Q8H PRN pain (scale score 03/11/25 7-10) #10 tabs tamsulosin 0.4 mg capsule 0.4 mg PO DAILY #60 caps 03/11/25 Allergies Allergy/AdvReac Type Severity Reaction Status Date / Time No Known Drug Allergies Allergy Verified 03/13/25 05:18 Patient History <Humberto Miranda MD - Last Filed: 03/13/25 23:15> Social History household members: spouse alcohol intake: current alcohol intake frequency: a few times a week Exam <Humberto Miranda MD - Last Filed: 03/13/25 23:15> Narrative Exam Narrative: GENERAL: Well-developed patient, in mild distress. HEAD: Atraumatic. Normocephalic. EYES: Pupils equal round and reactive. Extraocular motions intact. No scleral icterus. No injection or drainage. ENT: Nose without bleeding, purulent drainage. Throat without erythema, tonsillar hypertrophy or exudate. Airway patent. NECK: Trachea midline. Non tender CARDIOVASCULAR: Regular rate and rhythm without murmurs, gallops, or rubs. RESPIRATORY: Clear to auscultation. Breath sounds equal bilaterally. No wheezes, rales, or rhonchi. GASTROINTESTINAL: Infraumbilical area discomfort without obvious mass, no abnormal pulsations. Nondistended. Normal bowel tones without rushes or tinkles. No CVA region tenderness. EXTREMITIES: No edema or joint tenderness. BACK: Nontender without deformity or crepitance. No flank tenderness. NEURO: AOx3. Motor functions grossly nonfocal SKIN: No rash or erythema of visible areas Initial Vital Signs Initial Vital Signs: Vital Signs Pulse Rate 85 03/13/25 04:18 Respiratory Rate 16 03/13/25 04:18 Blood Pressure 166/79 H 03/13/25 04:18 Pulse Oximetry 98 03/13/25 04:18 Oxygen Delivery Method Room Air 03/13/25 04:18 <Kathryn Russell DO - Last Filed: 03/13/25 18:14> Initial Vital Signs Initial Vital Signs: Vital Signs Pulse Rate 85 03/13/25 04:18 Respiratory Rate 16 03/13/25 04:18 Blood Pressure 166/79 H 03/13/25 04:18 Pulse Oximetry 98 03/13/25 04:18 Oxygen Delivery Method Room Air 03/13/25 04:18 Course <Humberto Miranda MD - Last Filed: 03/13/25 23:15> Orders Ordered: Discontinued Medications Hydromorphone HCl (Hydromorphone 0.5 Mg Inj) 0.5 mg IV NOW ONE Stop: 03/13/25 06:03 Last Admin: 03/13/25 06:06 Dose: 0.5 mg Documented By: KODY Hydromorphone HCl (Hydromorphone 0.5 Mg Inj) 0.5 mg IV NOW ONE Stop: 03/13/25 07:24 Last Admin: 03/13/25 07:25 Dose: 0.5 mg Documented By: ARELI Sodium Chloride (Normal Saline 0.9%) 1,000 mls @ 1,000 mls/hr IV BOLUS ONE Stop: 03/13/25 06:30 Last Infusion: 03/13/25 06:18 Dose: Infused Documented By: Admin: 03/13/25 05:34 Dose: 1,000 mls/hr Documented By: KODY Ceftriaxone Sodium 1,000 mg/ (Sodium Chloride) 100 mls @ 200 mls/hr IV NOW ONE Stop: 03/13/25 06:30 Last Infusion: 03/13/25 07:20 Dose: Infused Documented By: Admin: 03/13/25 06:43 Dose: 200 mls/hr Documented By: KODY Sodium Chloride (Normal Saline 0.9%) 1,000 mls @ 125 mls/hr IV CONT EMILY Last Infusion: 03/13/25 12:18 Dose: 0 mls/hr Documented By: Admin: 03/13/25 07:54 Dose: 125 mls/hr Documented By: ARELI Lidocaine HCl 7 ml/ Sodium (Chloride) 57 mls @ 342 mls/hr IV NOW ONE Stop: 03/13/25 09:58 Last Infusion: 03/13/25 10:24 Dose: Infused Documented By: Admin: 03/13/25 10:04 Dose: 342 mls/hr Documented By: ARELI Polyethylene Glycol (Polyethylene Glycol 3350 17 Gm Powd.Pack) 17 gm PO NOW ONE Stop: 03/13/25 07:41 Last Admin: 03/13/25 07:54 Dose: 17 gm Documented By: ARELI Vital Signs Vital signs: Vital Signs - 8 hr 03/13/25 10:30 03/13/25 11:00 03/13/25 11:09 Temperature Pulse Rate 66 67 Blood Pressure 161/80 H Pulse Oximetry 96 95 Oxygen Delivery Method Room Air 03/13/25 11:09 03/13/25 11:14 03/13/25 11:20 Temperature 98.4 F Pulse Rate 72 Blood Pressure 180/85 H Pulse Oximetry 99 Oxygen Delivery Method 03/13/25 11:20 03/13/25 11:30 03/13/25 12:00 Temperature Pulse Rate 65 70 68 Blood Pressure Pulse Oximetry 95 96 97 Oxygen Delivery Method <Kathryn Russell DO - Last Filed: 03/13/25 18:14> Orders Ordered: Discontinued Medications Hydromorphone HCl (Hydromorphone 0.5 Mg Inj) 0.5 mg IV NOW ONE Stop: 03/13/25 06:03 Last Admin: 03/13/25 06:06 Dose: 0.5 mg Documented By: KODY Hydromorphone HCl (Hydromorphone 0.5 Mg Inj) 0.5 mg IV NOW ONE Stop: 03/13/25 07:24 Last Admin: 03/13/25 07:25 Dose: 0.5 mg Documented By: ARELI Sodium Chloride (Normal Saline 0.9%) 1,000 mls @ 1,000 mls/hr IV BOLUS ONE Stop: 03/13/25 06:30 Last Infusion: 03/13/25 06:18 Dose: Infused Documented By: Admin: 03/13/25 05:34 Dose: 1,000 mls/hr Documented By: RLC Ceftriaxone Sodium 1,000 mg/ (Sodium Chloride) 100 mls @ 200 mls/hr IV NOW ONE Stop: 03/13/25 06:30 Last Infusion: 03/13/25 07:20 Dose: Infused Documented By: Admin: 03/13/25 06:43 Dose: 200 mls/hr Documented By: KODY Sodium Chloride (Normal Saline 0.9%) 1,000 mls @ 125 mls/hr IV CONT EMILY Last Infusion: 03/13/25 12:18 Dose: 0 mls/hr Documented By: Admin: 03/13/25 07:54 Dose: 125 mls/hr Documented By: ARELI Lidocaine HCl 7 ml/ Sodium (Chloride) 57 mls @ 342 mls/hr IV NOW ONE Stop: 03/13/25 09:58 Last Infusion: 03/13/25 10:24 Dose: Infused Documented By: Admin: 03/13/25 10:04 Dose: 342 mls/hr Documented By: ARELI Polyethylene Glycol (Polyethylene Glycol 3350 17 Gm Powd.Pack) 17 gm PO NOW ONE Stop: 03/13/25 07:41 Last Admin: 03/13/25 07:54 Dose: 17 gm Documented By: ARELI Vital Signs Vital signs: Vital Signs - 8 hr 03/13/25 10:30 03/13/25 11:00 03/13/25 11:09 Temperature Pulse Rate 66 67 Blood Pressure 161/80 H Pulse Oximetry 96 95 Oxygen Delivery Method Room Air 03/13/25 11:09 03/13/25 11:14 03/13/25 11:20 Temperature 98.4 F Pulse Rate 72 Blood Pressure 180/85 H Pulse Oximetry 99 Oxygen Delivery Method 03/13/25 11:20 03/13/25 11:30 03/13/25 12:00 Temperature Pulse Rate 65 70 68 Blood Pressure Pulse Oximetry 95 96 97 Oxygen Delivery Method MDM - Abdominal Pain <Humberto Miranda MD - Last Filed: 03/13/25 23:15> Lab Data Attestation: I reviewed the patient's lab results. Lab results narrative: White blood cell count 52193, hemoglobin 13, platelets adequate. Glucose 113. BUN 16 with creatinine 1.47. Serum CO2 23. Sodium 136, potassium 3.7. Liver functions and lipase normal. 03/13/25 04:50 03/13/25 04:50 Labs: Lab Results 03/13/25 03/13/25 Range/Units 04:30 04:50 WBC 13.4 H D (4.5-11.0) X10^3/uL RBC 4.82 (4.5-5.9) X10^6/uL Hgb 13.0 L (13.5-17.5) g/dL Hct 40.1 L (41-53) % MCV 83.3 (80-100) fL MCH 26.9 (26-34) PG MCHC 32.3 (30-36) % RDW 15.2 H (11.6-14.8) % Plt Count 206 (150-400) X10^3/uL Neut % (Auto) 79.4 H (50-75) % Lymph % (Auto) 8.1 L (25-40) % [place] % (Auto) 12.2 (3-14) % Eos % (Auto) 0.1 L (2-4) % Baso % (Auto) 0.2 (0-2) % Neut # (Auto) 43842 H (4861-7376) /uL Lymph # (Auto) 1100 (5733-2399) /uL [place] # (Auto) 1600 H (0-900) /uL Eos # (Auto) 0 (0-450) /uL Baso # (Auto) 0 (0-100) /uL Sodium 136 L (137-145) mmol/L Potassium 3.7 (3.4-5.1) mmol/L Chloride 104 (98-107) mmol/L Carbon Dioxide 23 (22-32) mmol/L BUN 16 (9-20) mg/dL Creatinine 1.47 H (0.66-1.25) mg/dL Estimated GFR 53 L (>60) mL/min BUN/Creatinine Ratio 10.9 (6-22) Glucose 113 H (70-99) mg/dL Calcium 9.0 (8.4-10.2) mg/dL Total Bilirubin 0.7 (0.2-1.3) mg/dL AST 35 (17-59) IU/L ALT 23 (<50) IU/L Alkaline Phosphatase 83 (38-126) U/L Ammonia < 9 L (9-30) umol/L Total Protein 7.3 (6.3-8.2) g/dL Albumin 4.4 (3.5-5.0) g/dL Globulin 2.9 (1.7-4.1) g/dL Albumin/Globulin Ratio 1.5 (1.0-2.8) Lipase 74 (23-300) U/L Urine Color [place]undy Urine Appearance Sl cloudy Urine pH 5.5 (4.5-8.0) Ur Specific [place] >=1.030 H (1.000-1.035) Urine Protein TNP Urine Glucose (UA) TNP Urine Ketones TNP Urine Occult Blood 3+ H (Negative) Urine Nitrate TNP Urine Bilirubin TNP Urine Urobilinogen TNP Ur Leukocyte Esterase Trace H (NEGATIVE) Urine RBC >100/hpf H (0-5/HPF) Urine WBC 0-1/hpf (0-5/HPF) Ur Squamous Epith Cells 0-1 /hpf (0-5/HPF) Urine Bacteria Moderate (10-30) H (None) Ur Culture Indicated? Specimen cultured Vol Urine Centrifuged Low vol <10ml (spun) A MDM Narrative Medical decision making narrative: Left flank and left abdominal pain ongoing, recent diagnosis large left proximal ureteral stone, unable to have stent placement due to prostate enlargement, possible outpatient nephrostomy tube placement by IR, now having increasing pain, no nephrostomy tube had been placed yet. Afebrile, sirs screen negative at triage. Initially declined pain medications then requested. IV Dilaudid. Keep NPO. Renal function adequate. CT abdomen and pelvis study ordered. Urinalysis still pending. CT abdomen and pelvis with IV contrast. Impressions: ?Continued moderate left hydronephrosis with left proximal hydroureter secondary to a proximal left ureteral calculus. Non dependent air in the urinary bladder likely related to recent bladder instrumentation. Clinical correlation advised. ? See tele radiology report Urinalysis with hematuria also moderate bacteria. Urine culture requested. Blood cultures. IV ceftriaxone. We will consult with Urology, current urologist on-call at [facility], possible transfer to Urology capable facility for consultation, might need IR directed nephrostomy tube placement. 0650, case discussed with [facility] Dr. Llanes, consultation line, agrees with need for transfer for likely IR nephrostomy tube placement. We will initiate call for IR/Urology capable facilities. 0739 Dr. Russell: Patient signed out to myself by Dr. Miranda. Patient is seen and evaluated by myself. Patient has had left flank pain since Friday, no fevers no nausea or vomiting does also notes some constipation. He was nontender on exam currently. Has been hemodynamically stable he was found to have JULIO CESAR, urine does show changes consistent with infection , leukocytosis of 13 platelets are appropriate, electrolytes are appropriate LFTs are negative. Urine shows 100 RBCs 1 white cell 1 squamous moderate bacteria with trace leuks 3+ blood. Patient received Rocephin. CT imaging does show proximal 9 mm stone. Patient had attempted ureteral stent with Dr. Rubio, here at [facility] this last Friday which was unsuccessful. Was referred for nephrostomy with IR but presented to the emergency department with worsening pain. Case was discussed with Dr. Llanes she [facility] who agrees that IR urology necessary. Calls out to multiple facilities at this time regarding urology and IR availability and bed availability. Patient is agreeable for transfer. Patient had 2 doses of narcotic pain medication we will try a dose of lidocaine IV to see if this is helpful. He also notes he feels like he needs to have a bowel movement. Did not have a dose of MiraLax here in the department. Spoke with coordinator Beatriz amaya at 8:12 a.m., they will page out. Spoke with Dr. Melendez, urology for Beatriz amaya at 9:28 a.m.. Happy to see patient we will have hospitalist paged out. Spoke with hospitalist Dr. Gates, hospitalist accepts for transfer at 9:36 a.m.. Awaiting bed assignment. <Kathryn Russell, DO - Last Filed: 03/13/25 18:14> Lab Data Labs: Lab Results 03/13/25 03/13/25 Range/Units 04:30 04:50 WBC 13.4 H D (4.5-11.0) X10^3/uL RBC 4.82 (4.5-5.9) X10^6/uL Hgb 13.0 L (13.5-17.5) g/dL Hct 40.1 L (41-53) % MCV 83.3 (80-100) fL MCH 26.9 (26-34) PG MCHC 32.3 (30-36) % RDW 15.2 H (11.6-14.8) % Plt Count 206 (150-400) X10^3/uL Neut % (Auto) 79.4 H (50-75) % Lymph % (Auto) 8.1 L (25-40) % [place] % (Auto) 12.2 (3-14) % Eos % (Auto) 0.1 L (2-4) % Baso % (Auto) 0.2 (0-2) % Neut # (Auto) 39715 H (1677-2092) /uL Lymph # (Auto) 1100 (6910-4390) /uL [place] # (Auto) 1600 H (0-900) /uL Eos # (Auto) 0 (0-450) /uL Baso # (Auto) 0 (0-100) /uL Sodium 136 L (137-145) mmol/L Potassium 3.7 (3.4-5.1) mmol/L Chloride 104 (98-107) mmol/L Carbon Dioxide 23 (22-32) mmol/L BUN 16 (9-20) mg/dL Creatinine 1.47 H (0.66-1.25) mg/dL Estimated GFR 53 L (>60) mL/min BUN/Creatinine Ratio 10.9 (6-22) Glucose 113 H (70-99) mg/dL Calcium 9.0 (8.4-10.2) mg/dL Total Bilirubin 0.7 (0.2-1.3) mg/dL AST 35 (17-59) IU/L ALT 23 (<50) IU/L Alkaline Phosphatase 83 (38-126) U/L Ammonia < 9 L (9-30) umol/L Total Protein 7.3 (6.3-8.2) g/dL Albumin 4.4 (3.5-5.0) g/dL Globulin 2.9 (1.7-4.1) g/dL Albumin/Globulin Ratio 1.5 (1.0-2.8) Lipase 74 (23-300) U/L Urine Color [place] Urine Appearance Sl cloudy Urine pH 5.5 (4.5-8.0) Ur Specific [place] >=1.030 H (1.000-1.035) Urine Protein TNP Urine Glucose (UA) TNP Urine Ketones TNP Urine Occult Blood 3+ H (Negative) Urine Nitrate TNP Urine Bilirubin TNP Urine Urobilinogen TNP Ur Leukocyte Esterase Trace H (NEGATIVE) Urine RBC >100/hpf H (0-5/HPF) Urine WBC 0-1/hpf (0-5/HPF) Ur Squamous Epith Cells 0-1 /hpf (0-5/HPF) Urine Bacteria Moderate (10-30) H (None) Ur Culture Indicated? Specimen cultured Vol Urine Centrifuged Low vol <10ml (spun) A MDM Narrative Medical decision making narrative: Left flank and left abdominal pain ongoing, recent diagnosis large left proximal ureteral stone, unable to have stent placement due to prostate enlargement, possible outpatient nephrostomy tube placement by IR, now having increasing pain, no nephrostomy tube had been placed yet. Afebrile, sirs screen negative at triage. Initially declined pain medications then requested. IV Dilaudid. Keep NPO. Renal function adequate. CT abdomen and pelvis study ordered. Urinalysis still pending. CT abdomen and pelvis with IV contrast. Impressions: ?Continued moderate left hydronephrosis with left proximal hydroureter secondary to a proximal left ureteral calculus. Non dependent air in the urinary bladder likely related to recent bladder instrumentation. Clinical correlation advised. ? See tele radiology report Urinalysis with hematuria also moderate bacteria. Urine culture requested. Blood cultures. IV ceftriaxone. We will consult with Urology, current urologist at [facility], possible transfer to Urology capable facility for consultation, might need IR directed nephrostomy tube placement. 0650, case discussed with [facility] Dr. Llanes, consultation line, agrees with need for transfer for likely IR nephrostomy tube placement. We will initiate call for IR/Urology capable facilities. 0[address] Dr. Russell: Patient signed out to myself by Dr. Miranda. Patient is seen and evaluated by myself. Patient has had left flank pain since Friday, no fevers no nausea or vomiting does also notes some constipation. He was nontender on exam currently. Has been hemodynamically stable he was found to have JULIO CESAR, urine does show changes consistent with infection , leukocytosis of 13 platelets are appropriate, electrolytes are appropriate LFTs are negative. Urine shows 100 RBCs 1 white cell 1 squamous moderate bacteria with trace leuks 3+ blood. Patient received Rocephin. CT imaging does show proximal 9 mm stone. Patient had attempted ureteral stent with Dr. Rubio, here at [facility] this last Friday which was unsuccessful. Was referred for nephrostomy with IR but presented to the emergency department with worsening pain. Case was discussed with Dr. Shraddha spring [facility] who agrees that IR urology necessary. Calls out to multiple facilities at this time regarding urology and IR availability and bed availability. Patient is agreeable for transfer. Patient had 2 doses of narcotic pain medication we will try a dose of lidocaine IV to see if this is helpful. He also notes he feels like he needs to have a bowel movement. Did not have a dose of MiraLax here in the department. Spoke with coordinator Beatriz amaya at 8:12 a.m., they will page out. Spoke with Dr. Melendez, urology for Beatriz amaya at 9:28 a.m.. Happy to see patient we will have hospitalist paged out. Spoke with hospitalist Dr. Gates, hospitalist accepts for transfer at 9:36 a.m.. Awaiting bed assignment. Discharge Plan Departure Patient Disposition: [facility] Clinical Impression: Left ureteral stone, Urinary tract infection Prescriptions: No Action ibuprofen 200 mg Capsule 400 mg PO Q6H clobetasol 0.05 % ointment topical BID PRN (Reason: Rash) oxycodone 5 mg tablet 5 mg PO Q8H PRN (Reason: pain (scale score 7-10)) Qty: 10 0RF tamsulosin 0.4 mg capsule 0.4 mg PO DAILY Qty: 60 0RF Referrals: Steffen Shell MD [Primary Care Provider] -
[2025-03-13 05:02] LABS: Add Manual Diff / Slide Review NO; Basophils Absolute Auto 0 /uL (0-100); Basophils Percent Auto 0.2 % (0-2); Eosinophils Absolute Auto 0 /uL (0-450); Eosinophils Percent Auto 0.1 % (2-4); Hematocrit 40.1 % (41-53); Lymphocytes Absolute Auto 1100 /uL (1100-4500); Lymphocytes Percent Auto 8.1 % (25-40); Mean Corpuscular HGB Conc 32.3 % (30-36); Mean Corpuscular Hemoglobin 26.9 PG (26-34); Mean Corpuscular Volume 83.3 fL (80-100); Monocytes Absolute Auto 1600 /uL (0-900); Monocytes Percent Auto 12.2 % (3-14); Neutrophils Absolute Auto 10600 /uL (1500-7000); Neutrophils Percent Auto 79.4 % (50-75); Platelet Count 206 X10^3/uL (150-400); Red Blood Cell Count 4.82 X10^6/uL (4.5-5.9); Red Cell Distribution Width 15.2 % (11.6-14.8); White Blood Cell Count 13.4 X10^3/uL (4.5-11.0)
[2025-03-13 05:12] LABS: Alanine Aminotransferase 23 IU/L (<50); Albumin 4.4 g/dL (3.5-5.0); Albumin Globulin Ratio 1.5 (1.0-2.8); Alkaline Phosphatase 83 U/L (38-126); Ammonia (NH3) < 9 umol/L (9-30); Aspartate Aminotransferase 35 IU/L (17-59); BUN Creatinine Ratio 10.9 (6-22); Bilirubin Total 0.7 mg/dL (0.2-1.3); Blood Urea Nitrogen 16 mg/dL (9-20); Carbon Dioxide 23 mmol/L (22-32); Chloride 104 mmol/L (98-107); Estimated Glomerular Filt Rate 53 mL/min (>60); Globulin 2.9 g/dL (1.7-4.1); Glucose 113 mg/dL (70-99); HEMOLYSIS < 15 (0-50); Lipase 74 U/L (23-300); Potassium 3.7 mmol/L (3.4-5.1); Sodium 136 mmol/L (137-145); Total Protein 7.3 g/dL (6.3-8.2)
[2025-03-13] MEDS: SODIUM CHLORIDE 0.9% 1,000 ML 1000 ML IV (05:34)
[2025-03-13] MEDS: HYDROMORPHONE 0.5 MG INJ IV ×2 (06:06→07:25)
[2025-03-13] MEDS: cefTRIAXone 1,000 MG in SODIUM CHLORIDE 0.9% 100 ML 200 MG IV (06:43)
--- NOTE | 2025-03-13 07:28 | PC.NURSE ---
Assumed care of pt at 0700. A&Ox4. C/o 04/26 pain. States that he has not had a BM x3 days and would like something for pain and constipation. Dr Russell notified.
[2025-03-13] MEDS: SODIUM CHLORIDE 0.9% 1,000 ML 125 ML IV (07:54)
[2025-03-13] MEDS: polyethylene glycoL 3350 17 GM POWD.PACK PO (07:54)
[2025-03-13] MEDS: LIDOCAINE 2% (PF) 7 ML in SODIUM CHLORIDE 0.9% 50 ML 342 ML IV (10:04)
== END 2025-03-13 12:10 | disposition short-term general hospital (02) ==
PROVIDERS: Emergency Medicine; Emergency Provider Emergency Medicine; PCP Internal Medicine
DX: N20.1 Calculus of ureter (principal); N39.0 Urinary tract infection, site not specified
CPT/HCPCS: 36415; 51798; 74177; 80053; 81001; 82140; 83690; 85025; 87040; 87086; 96361; 96365; 96367; 96375; 96376; 99284; J0696; J1171; Q9967

== ENCOUNTER 2025-03-20 14:43 | Emergency (ER) | payer OTHER, SELFPAY ==
[2025-03-20 14:55] VITALS: BP 139/86; PULSE 88; RESP 17; TEMP 36.3; O2SAT 98; BMI 27.8
--- NOTE | 2025-03-20 16:43 | PC.NURSE ---
Pt was empting his left nephrostomy tube and then turned around and his tubing got caught on a handle. Pt felt a tug at his nephrostomy insertion site and both pt and spouse state they believe the site was pulled out a little bit. There was bloody urine draining from nephrostomy within 5 minutes of this incident. Nephrostomy is continuing to drain and is serosangruinous in color. Pt denies pain. No other symptoms. Concerned the drain is not in the right location.
--- NOTE | 2025-03-20 17:16 | DI.CT.S_ITS ---
PROCEDURE: CT ABDOMEN PELVIS W CON INDICATIONS: left nephrostomy tube yanked TECHNIQUE: After the administration of intravenous contrast, axial sections acquired from the lung bases to the pubic symphysis. Coronal and sagittal reformats were performed. For radiation dose reduction, the following was used: automated exposure control, adjustment of mA and/or kV according to patient size. COMPARISON: [facility], CT, CT ABDOMEN PELVIS W CON, 03/13/2025, 5:29. FINDINGS: Image quality: Diagnostic. Lower Chest: No significant findings. ABDOMEN: Liver: No solid mass. Gallbladder: No radiopaque gallstones or wall thickening. Biliary ducts: No biliary dilation. Pancreas: No ductal dilation. Spleen: Size is within normal limits. Adrenal Glands: No adrenal nodules. Kidneys and Ureters: Left percutaneous nephrostomy tube within the renal pelvis. Proximal left ureteral stone measuring 8 mm unchanged from comparison. Stomach and Bowel: Normal colonic caliber, without significant wall thickening. Peritoneum: No abnormal intraperitoneal fluid. No free air. Ventral Wall: No significant ventral hernia. Abdominal Nodes: No retroperitoneal or mesenteric adenopathy by size criteria. Vessels: Aorta and inferior vena cava are normal in size. PELVIS: Pelvic Organs: Prostatomegaly.. Bladder: No bladder wall thickening, accounting for underdistention. Pelvic Nodes: No enlarged lymph nodes. Miscellaneous: Small fat containing inguinal hernias. Bones: No aggressive osseous abnormality. IMPRESSION: Left percutaneous nephrostomy tube within the left renal pelvis. Proximal left ureteral stone, unchanged in position. Dictated by: Norbert Eagle M.D. on 03/20/2025 at 17:10 Approved by: Norbert Eagle M.D. on 03/20/2025 at 17:14
--- NOTE | 2025-03-20 17:42 | ED.ABDPAIN ---
HPI - Abdominal Pain General Chief Complaint: Urogenital-Male Stated Complaint: Temp Neph Tubing Snagged & pulled, passing blood Time Seen by Provider: 03/20/25 17:16 Source: patient and family Mode of arrival: Ambulatory History of Present Illness HPI narrative: Patient is a 64-year-old male with known 9 mm left nephrolithiasis diagnosed here on 03/11/2025 was ultimately transferred to [facility] where he had left nephrostomy tube placed along with a left ureteral stent. Patient reports that he continues to have the stone. Today his nephrostomy tube got a little tug when it got caught on a dresser drawer. He immediately had some blood out of the to but now the urine has cleared up. Want to make sure that the tube is in place. No other symptoms no pain no nausea no vomiting or fever. Related Data Home Medications Medication Instructions Recorded Confirmed clobetasol 0.05 % topical ointment topical BID PRN Rash 03/11/25 ibuprofen 200 mg capsule 400 mg PO Q6H 03/11/25 03/11/25 Previous Rx's Medication Instructions Recorded oxycodone 5 mg tablet 5 mg PO Q8H PRN pain (scale score 03/11/25 7-10) #10 tabs tamsulosin 0.4 mg capsule 0.4 mg PO DAILY #60 caps 03/11/25 Allergies Allergy/AdvReac Type Severity Reaction Status Date / Time No Known Drug Allergies Allergy Verified 03/20/25 14:55 Patient History Social History household members: spouse alcohol intake: current alcohol intake frequency: a few times a week Exam Initial Vital Signs Initial Vital Signs: Vital Signs Temperature 97.3 F L 03/20/25 14:55 Pulse Rate 88 03/20/25 14:55 Respiratory Rate 17 03/20/25 14:55 Blood Pressure 139/86 03/20/25 14:55 Pulse Oximetry 98 03/20/25 14:55 Oxygen Delivery Method Room Air 03/20/25 14:55 GENERAL: Alert pleasant well-appearing 64-year-old female and in no acute distress. HEENT: Head atraumatic,EOMI, pupils reactive, face symmetric, moist mucous membranes CARDIOVASCULAR: Regular rate and rhythm without murmurs, rubs or gallops. RESPIRATORY: Breath sounds equal bilaterally, no wheezes rales or rhonchi. ABDOMEN: Soft, nontender. Normoactive bowel sounds all 4 quadrants. No guarding or rebound. : Left nephrostomy tube in place clear urine into EXTREMITIES: Normal range of motion, no clubbing or edema. Neurovascularly intact NEUROLOGICAL: Alert and oriented x4.Normal gait and speech. Cranial nerves II through XII grossly intact. SKIN: Warm, dry, no laceration, no petechiae, no rashes or lesions. Course Orders Ordered: ED Orders 03/20/25 17:16 CT abdomen pelvis w con Stat CBC Auto Diff [Complete Blood Count AUTO DIFF] Stat CMP [Comprehensive Metabolic Panel] Stat Vital Signs Vital signs: Vital Signs - 8 hr 03/20/25 14:55 Temperature 97.3 F L Pulse Rate 88 Respiratory Rate 17 Blood Pressure 139/86 Pulse Oximetry 98 Oxygen Delivery Method Room Air MDM - Abdominal Pain Lab Data 03/20/25 17:36 03/20/25 17:36 Labs: Lab Results 03/20/25 Range/Units 17:36 WBC 8.8 (4.5-11.0) X10^3/uL RBC 4.69 (4.5-5.9) X10^6/uL Hgb 13.2 L (13.5-17.5) g/dL Hct 39.0 L (41-53) % MCV 83.2 (80-100) fL MCH 28.1 (26-34) PG MCHC 33.7 (30-36) % RDW 15.1 H (11.6-14.8) % Plt Count 328 (150-400) X10^3/uL Neut % (Auto) 61.2 (50-75) % Lymph % (Auto) 26.8 (25-40) % [place] % (Auto) 9.3 (3-14) % Eos % (Auto) 2.4 (2-4) % Baso % (Auto) 0.3 (0-2) % Neut # (Auto) 5400 (1035-1226) /uL Lymph # (Auto) 2400 (1163-2943) /uL [place] # (Auto) 800 (0-900) /uL Eos # (Auto) 200 (0-450) /uL Baso # (Auto) 0 (0-100) /uL Sodium 139 (137-145) mmol/L Potassium 3.8 (3.4-5.1) mmol/L Chloride 102 (98-107) mmol/L Carbon Dioxide 29 (22-32) mmol/L BUN 14 (9-20) mg/dL Creatinine 0.82 (0.66-1.25) mg/dL Estimated GFR > 60 (>60) mL/min BUN/Creatinine Ratio 17.1 (6-22) Glucose 100 H (70-99) mg/dL Calcium 8.8 (8.4-10.2) mg/dL Total Bilirubin 0.3 (0.2-1.3) mg/dL AST 42 (17-59) IU/L ALT 54 H (<50) IU/L Alkaline Phosphatase 87 (38-126) U/L Total Protein 7.3 (6.3-8.2) g/dL Albumin 4.1 (3.5-5.0) g/dL Globulin 3.2 (1.7-4.1) g/dL Albumin/Globulin Ratio 1.3 (1.0-2.8) Imaging Data CT scan - abdomen/pelvis: Radiologist's Impression: PROCEDURE: CT ABDOMEN PELVIS W CON INDICATIONS: left nephrostomy tube yanked TECHNIQUE: After the administration of intravenous contrast, axial sections acquired from the lung bases to the pubic symphysis. Coronal and sagittal reformats were performed. For radiation dose reduction, the following was used: automated exposure control, adjustment of mA and/or kV according to patient size. COMPARISON: [facility], CT, CT ABDOMEN PELVIS W CON, 03/13/2025, 5:29. FINDINGS: Image quality: Diagnostic. Lower Chest: No significant findings. ABDOMEN: Liver: No solid mass. Gallbladder: No radiopaque gallstones or wall thickening. Biliary ducts: No biliary dilation. Pancreas: No ductal dilation. Spleen: Size is within normal limits. Adrenal Glands: No adrenal nodules. Kidneys and Ureters: Left percutaneous nephrostomy tube within the renal pelvis. Proximal left ureteral stone measuring 8 mm unchanged from comparison. Stomach and Bowel: Normal colonic caliber, without significant wall thickening. Peritoneum: No abnormal intraperitoneal fluid. No free air. Ventral Wall: No significant ventral hernia. Abdominal Nodes: No retroperitoneal or mesenteric adenopathy by size criteria. Vessels: Aorta and inferior vena cava are normal in size. PELVIS: Pelvic Organs: Prostatomegaly.. Bladder: No bladder wall thickening, accounting for underdistention. Pelvic Nodes: No enlarged lymph nodes. Miscellaneous: Small fat containing inguinal hernias. Bones: No aggressive osseous abnormality. IMPRESSION: Left percutaneous nephrostomy tube within the left renal pelvis. Proximal left ureteral stone, unchanged in position. Dictated by: Norbert Eagle M.D. on 03/20/2025 at 17:10 Approved by: Norbert Eagle M.D. on 03/20/2025 at 17:14 [facility] Narrative Medical decision making narrative: Patient is a 64-year-old male who has a left nephrostomy tube in place secondary to large left nephrolithiasis. Presenting today after small injury to the 2. He did have some blood initially but now urine is clear. Blood work has been reviewed No leukocytosis no anemia CMP no significant electrolyte abnormalities or JULIO CESAR CT abdomen pelvis shows nephrostomy tube in place At this time patient is not requiring anything for pain overall appears well nontoxic blood work is reassuring CT confirms placement of nephrostomy tube. At this time follow up with Nephrology Discharge Plan Departure Patient Disposition: Home Clinical Impression: Left ureteral stone Instructions: DI for Kidney Stones Activity Restrictions/Additional Instructions: *You have been diagnosed with kidney stone *What to do: At this time please follow up with Beatriz amaya and urology *Continue to take medications as directed *Follow up with your primary care provider in 2-3 days or call [phone] *Return to ER if you should have increasing pain bloody urine fever or any new, worsening or concerning symptoms Prescriptions: No Action ibuprofen 200 mg Capsule 400 mg PO Q6H clobetasol 0.05 % ointment topical BID PRN (Reason: Rash) oxycodone 5 mg tablet 5 mg PO Q8H PRN (Reason: pain (scale score 7-10)) Qty: 10 0RF tamsulosin 0.4 mg capsule 0.4 mg PO DAILY Qty: 60 0RF Referrals: Steffen Shell MD [Primary Care Provider] - Stand Alone Forms: Patient Portal/API/Survey
[2025-03-20 17:49] LABS: Add Manual Diff / Slide Review NO; Basophils Absolute Auto 0 /uL (0-100); Basophils Percent Auto 0.3 % (0-2); Eosinophils Absolute Auto 200 /uL (0-450); Eosinophils Percent Auto 2.4 % (2-4); Hemoglobin 13.2 g/dL (13.5-17.5); Lymphocytes Absolute Auto 2400 /uL (1100-4500); Lymphocytes Percent Auto 26.8 % (25-40); Mean Corpuscular HGB Conc 33.7 % (30-36); Mean Corpuscular Hemoglobin 28.1 PG (26-34); Mean Corpuscular Volume 83.2 fL (80-100); Monocytes Absolute Auto 800 /uL (0-900); Monocytes Percent Auto 9.3 % (3-14); Neutrophils Absolute Auto 5400 /uL (1500-7000); Neutrophils Percent Auto 61.2 % (50-75); Platelet Count 328 X10^3/uL (150-400); Red Blood Cell Count 4.69 X10^6/uL (4.5-5.9); Red Cell Distribution Width 15.1 % (11.6-14.8); White Blood Cell Count 8.8 X10^3/uL (4.5-11.0)
[2025-03-20 18:09] LABS: Alanine Aminotransferase 54 IU/L (<50); Albumin 4.1 g/dL (3.5-5.0); Albumin Globulin Ratio 1.3 (1.0-2.8); Alkaline Phosphatase 87 U/L (38-126); Aspartate Aminotransferase 42 IU/L (17-59); BUN Creatinine Ratio 17.1 (6-22); Bilirubin Total 0.3 mg/dL (0.2-1.3); Blood Urea Nitrogen 14 mg/dL (9-20); Calcium 8.8 mg/dL (8.4-10.2); Carbon Dioxide 29 mmol/L (22-32); Chloride 102 mmol/L (98-107); Estimated Glomerular Filt Rate > 60 mL/min (>60); Globulin 3.2 g/dL (1.7-4.1); Glucose 100 mg/dL (70-99); HEMOLYSIS < 15 (0-50); Potassium 3.8 mmol/L (3.4-5.1); Sodium 139 mmol/L (137-145); Total Protein 7.3 g/dL (6.3-8.2)
[2025-03-20 18:39] VITALS: BP 142/82; PULSE 71; RESP 16; O2SAT 100
== END 2025-03-20 18:39 | disposition home or self-care (01) ==
PROVIDERS: Emergency Provider Emergency Medicine; PCP Internal Medicine
DX: N20.1 Calculus of ureter (principal); R31.9 Hematuria, unspecified; Z93.6 Other artificial openings of urinary tract status
CPT/HCPCS: 74177; 80053; 85025; 99281; 99284; Q9967

== ENCOUNTER 2025-04-11 03:35 | Emergency (ER) | payer OTHER, SELFPAY ==
[2025-04-11] VITALS (20 sets, daily range): BP systolic 125–159; BP diastolic 64–105; PULSE 79–98; RESP 7–22; TEMP 37.1; O2SAT 93–100; BMI 27.1
--- NOTE | 2025-04-11 04:03 | PC.NURSE ---
Pt ambulatory to restroom. States small amount of output with little relief.
--- NOTE | 2025-04-11 05:14 | DI.RAD.S_ITS ---
PROCEDURE: XR ACUTE ABDOMEN SERIES INDICATIONS: kidney stone TECHNIQUE: One view chest and two views of the abdomen were acquired. COMPARISON: [facility], CT, CT ABDOMEN PELVIS W CON, 03/20/2025, 17:26. FINDINGS: Surgical changes and devices: Left percutaneous nephrostomy tube is present. There is slight kinking of the distal to fat is new when compared to the CT from 03/20/2025. Chest: Lungs are clear. Heart size is normal. No pleural effusions. No pneumoperitoneum. Abdomen: A few mildly prominent loops of small bowel are seen with air-fluid level on upright image. Possible small calcification projecting over the left sacrum measuring 6 mm. Visualized solid organ contours appear normal. Bones: No suspicious bony lesions. IMPRESSION: 1. Left percutaneous nephrostomy tube is present. There is mild kinking of the tube that is new when compared to the CT from 03/20/2025. Recommend correlation with nephrostomy output to exclude obstruction. 2. A 6 mm calcification projects over the left sacrum that may represent a left ureteral calculus. 3. A few mildly dilated loops of small bowel are present with air-fluid level on upright view, and mild early small bowel obstruction is not excluded. Approved by: Caleb Jonas M.D. on 04/11/2025 at 8:20
--- NOTE | 2025-04-11 05:14 | ED.MALEGU ---
HPI - Male Genitourinary <Delgado Ledesma DO - Last Filed: 04/11/25 06:52> General Chief complaint: Urogenital-Male Stated complaint: Kidney Stone x4wks, Cannot Urinate Time Seen by Provider: 04/11/25 04:03 Source: patient Mode of arrival: Ambulatory History of Present Illness HPI Narrative: 64-year-old gentleman presents with known history of 9 mm left kidney stone diagnosed on 03/11 transferred to [facility] where he had a nephrostomy tube placed along the left ureteral stent was supposed to have surgery on 04/05 but due to insurance coverage surgery not covered. Tube is still in place for over a month now having pain radiating from the right side down to the right groin despite known left kidney stone but no blood in the urine. Patient denies nausea, vomiting, fever, chills, diarrhea, or constipation. Patient is reluctant to take pain medicines as it causes him to have severe constipation. Other than what is stated 14 point review of system is negative. Related Data Home Medications Medication Instructions Recorded Confirmed clobetasol 0.05 % topical ointment topical BID PRN Rash 03/11/25 04/07/25 ibuprofen 200 mg capsule 400 mg PO Q6H 03/11/25 04/07/25 Previous Rx's Medication Instructions Recorded oxycodone 5 mg tablet 5 mg PO Q8H PRN pain (scale score 03/11/25 7-10) #10 tabs tamsulosin 0.4 mg capsule 0.4 mg PO DAILY #60 caps 03/11/25 cefdinir 300 mg capsule 300 mg PO BID 10 days #20 caps 04/11/25 cefdinir 300 mg capsule 300 mg PO BID 10 days #20 caps 04/11/25 oxycodone-acetaminophen 5 mg-325 1 tab PO Q6H PRN pain #14 tabs 04/11/25 mg tablet Allergies Allergy/AdvReac Type Severity Reaction Status Date / Time No Known Drug Allergies Allergy Verified 04/07/25 13:55 Review of Systems <Deglado Ledesma DO - Last Filed: 04/11/25 06:52> Review of Systems ROS Unobtainable: All systems reviewed & are unremarkable except as noted in HPI and below Patient History <Delgado Ledesma DO - Last Filed: 04/11/25 06:52> Social History household members: spouse Smoking Status: Never smoker alcohol intake: current Smoking Status: Never smoker alcohol intake frequency: a few times a week Exam <Delgado Ledesma DO - Last Filed: 04/11/25 06:52> Narrative Exam Narrative: GENERAL: [64] year old patient appears stated age. Well-developed patient, in mild distress. HEAD: Atraumatic. Normocephalic. EYES: Pupils equal round and reactive. Extraocular motions intact. No scleral icterus. No injection or drainage. NECK: Trachea midline. Non tender CARDIOVASCULAR: Regular rate and rhythm without murmurs, gallops, or rubs. RESPIRATORY: Clear to auscultation. Breath sounds equal bilaterally. No wheezes, rales, or rhonchi. GASTROINTESTINAL: Abdomen soft, non-tender, nondistended. : Left nephrostomy tube in place clear urine EXTREMITIES: No edema or joint tenderness. BACK: Nontender without deformity or crepitance. No flank tenderness. NEURO: AOx3. SKIN: No rash or erythema of visible areas Initial Vital Signs Initial Vital Signs: Vital Signs Pulse Rate 92 H 04/11/25 03:42 Blood Pressure 141/105 H 04/11/25 03:42 Pulse Oximetry 94 04/11/25 03:42 <Humberto Miranda MD - Last Filed: 04/11/25 18:50> Initial Vital Signs Initial Vital Signs: Vital Signs Pulse Rate 92 H 04/11/25 03:42 Blood Pressure 141/105 H 04/11/25 03:42 Pulse Oximetry 94 04/11/25 03:42 Course <Delgado Ledesma DO - Last Filed: 04/11/25 06:52> Orders Ordered: Discontinued Medications Hydromorphone HCl (Hydromorphone 1 Mg Inj) 1 mg IV Q15MIN PRN PRN Reason: Pain, Severe (7-10) Last Admin: 04/11/25 06:40 Dose: 1 mg Documented By: Admin: 04/11/25 05:31 Dose: 1 mg Documented By: DONTE Hydromorphone HCl (Hydromorphone 1 Mg Inj) 1 mg IV NOW ONE Stop: 04/11/25 11:30 Last Admin: 04/11/25 11:42 Dose: 1 mg Documented By: ANA Sodium Chloride (Normal Saline 0.9%) 1,000 mls @ 1,000 mls/hr IV BOLUS PRN PRN Reason: Fluid replacement Last Infusion: 04/11/25 06:40 Dose: Infused Documented By: Admin: 04/11/25 05:30 Dose: 1,000 mls/hr Documented By: DONTE Ceftriaxone Sodium 2,000 mg/ (Sodium Chloride) 100 mls @ 200 mls/hr IV NOW ONE Stop: 04/11/25 06:13 Last Infusion: 04/11/25 07:29 Dose: Infused Documented By: Admin: 04/11/25 06:39 Dose: 200 mls/hr Documented By: DONTE Lactated Ringer's (Lactated Ringers) 1,000 mls @ 1,000 mls/hr IV BOLUS ONE Stop: 04/11/25 07:19 Last Infusion: 04/11/25 07:41 Dose: Infused Documented By: Admin: 04/11/25 06:39 Dose: 1,000 mls/hr Documented By: DONTE Vital Signs Vital signs: Vital Signs - 8 hr 04/11/25 11:41 Pulse Rate 81 Pulse Oximetry 97 <Humberto Miranda MD - Last Filed: 04/11/25 18:50> Orders Ordered: Discontinued Medications Hydromorphone HCl (Hydromorphone 1 Mg Inj) 1 mg IV Q15MIN PRN PRN Reason: Pain, Severe (7-10) Last Admin: 04/11/25 06:40 Dose: 1 mg Documented By: Admin: 04/11/25 05:31 Dose: 1 mg Documented By: DONTE Hydromorphone HCl (Hydromorphone 1 Mg Inj) 1 mg IV NOW ONE Stop: 04/11/25 11:30 Last Admin: 04/11/25 11:42 Dose: 1 mg Documented By: ANA Sodium Chloride (Normal Saline 0.9%) 1,000 mls @ 1,000 mls/hr IV BOLUS PRN PRN Reason: Fluid replacement Last Infusion: 04/11/25 06:40 Dose: Infused Documented By: Admin: 04/11/25 05:30 Dose: 1,000 mls/hr Documented By: DONTE Ceftriaxone Sodium 2,000 mg/ (Sodium Chloride) 100 mls @ 200 mls/hr IV NOW ONE Stop: 04/11/25 06:13 Last Infusion: 04/11/25 07:29 Dose: Infused Documented By: Admin: 04/11/25 06:39 Dose: 200 mls/hr Documented By: DONTE Lactated Ringer's (Lactated Ringers) 1,000 mls @ 1,000 mls/hr IV BOLUS ONE Stop: 04/11/25 07:19 Last Infusion: 04/11/25 07:41 Dose: Infused Documented By: Admin: 04/11/25 06:39 Dose: 1,000 mls/hr Documented By: DONTE Vital Signs Vital signs: Vital Signs - 8 hr 04/11/25 11:41 Pulse Rate 81 Pulse Oximetry 97 MDM - Male Genitourinary <Delgado Ledesma DO - Last Filed: 04/11/25 06:52> Lab Data 04/11/25 03:59 04/11/25 03:59 Labs: Lab Results 04/11/25 04/11/25 04/11/25 Range/Units 03:44 03:59 05:26 WBC 22.6 H (4.5-11.0) X10^3/uL RBC 4.60 (4.5-5.9) X10^6/uL Hgb 12.3 L (13.5-17.5) g/dL Hct 37.7 L (41-53) % MCV 82.0 (80-100) fL MCH 26.7 (26-34) PG MCHC 32.5 (30-36) % RDW 15.2 H (11.6-14.8) % Plt Count 239 (150-400) X10^3/uL Neut % (Auto) 85.3 H (50-75) % Lymph % (Auto) 7.2 L (25-40) % Bland % (Auto) 7.2 (3-14) % Eos % (Auto) 0.1 L (2-4) % Baso % (Auto) 0.2 (0-2) % Neut # (Auto) 72128 H (4743-2478) /uL Lymph # (Auto) 1600 (3380-1338) /uL Bland # (Auto) 1600 H (0-900) /uL Eos # (Auto) 0 (0-450) /uL Baso # (Auto) 100 (0-100) /uL VBG pH (7.33-7.43) VBG pCO2 (45-50) mmHg VBG pO2 (35-45) mmHg VBG HCO3 (24-28) mmol/L VBG Total CO2 (24-29) mmol/L VBG O2 Saturation (70-75) % VBG Base Excess (0-4) mmol/L Sodium 135 L (137-145) mmol/L Potassium 4.0 (3.4-5.1) mmol/L Chloride 100 (98-107) mmol/L Carbon Dioxide 27 (22-32) mmol/L BUN 11 (9-20) mg/dL Creatinine 0.90 (0.66-1.25) mg/dL Estimated GFR > 60 (>60) mL/min BUN/Creatinine Ratio 12.2 (6-22) Glucose 120 H (70-99) mg/dL Lactate (0.7-2.1) mmol/L Calcium 9.1 (8.4-10.2) mg/dL Total Bilirubin 0.6 (0.2-1.3) mg/dL AST 24 (17-59) IU/L ALT 24 (<50) IU/L Alkaline Phosphatase 112 (38-126) U/L Ammonia < 9 L (9-30) umol/L Total Protein 7.6 (6.3-8.2) g/dL Albumin 4.0 (3.5-5.0) g/dL Globulin 3.6 (1.7-4.1) g/dL Albumin/Globulin Ratio 1.1 (1.0-2.8) Lipase 61 (23-300) U/L Urine Color Dark yellow Urine Appearance Cloudy Urine pH 6.0 (4.5-8.0) Ur Specific [place] 1.020 (1.000-1.035) Urine Protein 2+ H (Negative) Urine Glucose (UA) Negative (Negative) g/dL Urine Ketones 1+ H (NEGATIVE) Urine Occult Blood 1+ H (Negative) Urine Nitrate Positive H (Negative) Urine Bilirubin Negative (NEGATIVE) Urine Urobilinogen 1.0 (0.2) E.U./dL Ur Leukocyte Esterase 1+ H (NEGATIVE) Urine RBC 5-10/hpf H (0-5/HPF) Urine WBC 30-100/hpf H (0-5/HPF) Ur Squamous Epith Cells 0-1 /hpf (0-5/HPF) Urine Bacteria Many (>30) H (None) Urine Mucus 1+ H (Negative) Ur Culture Indicated? Specimen cultured Vol Urine Centrifuged 10ml (spun) 04/11/25 04/11/25 Range/Units 05:51 06:32 WBC (4.5-11.0) X10^3/uL RBC (4.5-5.9) X10^6/uL Hgb (13.5-17.5) g/dL Hct (41-53) % MCV (80-100) fL MCH (26-34) PG MCHC (30-36) % RDW (11.6-14.8) % Plt Count (150-400) X10^3/uL Neut % (Auto) (50-75) % Lymph % (Auto) (25-40) % Bland % (Auto) (3-14) % Eos % (Auto) (2-4) % Baso % (Auto) (0-2) % Neut # (Auto) (8506-3226) /uL Lymph # (Auto) (3977-3035) /uL Bland # (Auto) (0-900) /uL Eos # (Auto) (0-450) /uL Baso # (Auto) (0-100) /uL VBG pH 7.35 (7.33-7.43) VBG pCO2 61.0 H (45-50) mmHg VBG pO2 42 (35-45) mmHg VBG HCO3 33 H (24-28) mmol/L VBG Total CO2 33 H (24-29) mmol/L VBG O2 Saturation 74 (70-75) % VBG Base Excess 5.8 H (0-4) mmol/L Sodium (137-145) mmol/L Potassium (3.4-5.1) mmol/L Chloride (98-107) mmol/L Carbon Dioxide (22-32) mmol/L BUN (9-20) mg/dL Creatinine (0.66-1.25) mg/dL Estimated GFR (>60) mL/min BUN/Creatinine Ratio (6-22) Glucose (70-99) mg/dL Lactate 0.9 (0.7-2.1) mmol/L Calcium (8.4-10.2) mg/dL Total Bilirubin (0.2-1.3) mg/dL AST (17-59) IU/L ALT (<50) IU/L Alkaline Phosphatase (38-126) U/L Ammonia (9-30) umol/L Total Protein (6.3-8.2) g/dL Albumin (3.5-5.0) g/dL Globulin (1.7-4.1) g/dL Albumin/Globulin Ratio (1.0-2.8) Lipase (23-300) U/L Urine Color Urine Appearance Urine pH (4.5-8.0) Ur Specific [place] (1.000-1.035) Urine Protein (Negative) Urine Glucose (UA) (Negative) g/dL Urine Ketones (NEGATIVE) Urine Occult Blood (Negative) Urine Nitrate (Negative) Urine Bilirubin (NEGATIVE) Urine Urobilinogen (0.2) E.U./dL Ur Leukocyte Esterase (NEGATIVE) Urine RBC (0-5/HPF) Urine WBC (0-5/HPF) Ur Squamous Epith Cells (0-5/HPF) Urine Bacteria (None) Urine Mucus (Negative) Ur Culture Indicated? Vol Urine Centrifuged MDM Narrative Medical decision making narrative: All lab work, vital signs, nurse triage note, previous ER visits, and all imaging modalities including x-rays and CT scans have been reviewed. [place] [address] with a left shift. Sodium 135 glucose 120 urine positive for nitrates urine WBC 3200 5-10 RBC and +1 leuk. Blood cultures obtained 2 g of Rocephin given and 1 L LR bolus x1. Differential diagnosis includes sepsis, UTI, kidney stone, kidney abscess, tube displacement. <Humberto Miranda MD - Last Filed: 04/11/25 18:50> Lab Data Labs: Lab Results 04/11/25 04/11/25 04/11/25 Range/Units 03:44 03:59 05: WBC 22.6 H (4.5-11.0) X10^3/uL RBC 4.60 (4.5-5.9) X10^6/uL Hgb 12.3 L (13.5-17.5) g/dL Hct 37.7 L (41-53) % MCV 82.0 (80-100) fL MCH 26.7 (26-34) PG MCHC 32.5 (30-36) % RDW 15.2 H (11.6-14.8) % Plt Count 239 (150-400) X10^3/uL Neut % (Auto) 85.3 H (50-75) % Lymph % (Auto) 7.2 L (25-40) % Bland % (Auto) 7.2 (3-14) % Eos % (Auto) 0.1 L (2-4) % Baso % (Auto) 0.2 (0-2) % Neut # (Auto) 90435 H (2217-5338) /uL Lymph # (Auto) 1600 (1605-2463) /uL Bland # (Auto) 1600 H (0-900) /uL Eos # (Auto) 0 (0-450) /uL Baso # (Auto) 100 (0-100) /uL VBG pH (7.33-7.43) VBG pCO2 (45-50) mmHg VBG pO2 (35-45) mmHg VBG HCO3 (24-28) mmol/L VBG Total CO2 (24-29) mmol/L VBG O2 Saturation (70-75) % VBG Base Excess (0-4) mmol/L Sodium 135 L (137-145) mmol/L Potassium 4.0 (3.4-5.1) mmol/L Chloride 100 (98-107) mmol/L Carbon Dioxide 27 (22-32) mmol/L BUN 11 (9-20) mg/dL Creatinine 0.90 (0.66-1.25) mg/dL Estimated GFR > 60 (>60) mL/min BUN/Creatinine Ratio 12.2 (6-22) Glucose 120 H (70-99) mg/dL Lactate (0.7-2.1) mmol/L Calcium 9.1 (8.4-10.2) mg/dL Total Bilirubin 0.6 (0.2-1.3) mg/dL AST 24 (17-59) IU/L ALT 24 (<50) IU/L Alkaline Phosphatase 112 (38-126) U/L Ammonia < 9 L (9-30) umol/L Total Protein 7.6 (6.3-8.2) g/dL Albumin 4.0 (3.5-5.0) g/dL Globulin 3.6 (1.7-4.1) g/dL Albumin/Globulin Ratio 1.1 (1.0-2.8) Lipase 61 (23-300) U/L Urine Color Dark yellow Urine Appearance Cloudy Urine pH 6.0 (4.5-8.0) Ur Specific [place] 1.020 (1.000-1.035) Urine Protein 2+ H (Negative) Urine Glucose (UA) Negative (Negative) g/dL Urine Ketones 1+ H (NEGATIVE) Urine Occult Blood 1+ H (Negative) Urine Nitrate Positive H (Negative) Urine Bilirubin Negative (NEGATIVE) Urine Urobilinogen 1.0 (0.2) E.U./dL Ur Leukocyte Esterase 1+ H (NEGATIVE) Urine RBC 5-10/hpf H (0-5/HPF) Urine WBC 30-100/hpf H (0-5/HPF) Ur Squamous Epith Cells 0-1 /hpf (0-5/HPF) Urine Bacteria Many (>30) H (None) Urine Mucus 1+ H (Negative) Ur Culture Indicated? Specimen cultured Vol Urine Centrifuged 10ml (spun) 04/11/25 04/11/25 Range/Units 05:51 06:32 WBC (4.5-11.0) X10^3/uL RBC (4.5-5.9) X10^6/uL Hgb (13.5-17.5) g/dL Hct (41-53) % MCV (80-100) fL MCH (26-34) PG MCHC (30-36) % RDW (11.6-14.8) % Plt Count (150-400) X10^3/uL Neut % (Auto) (50-75) % Lymph % (Auto) (25-40) % Bland % (Auto) (3-14) % Eos % (Auto) (2-4) % Baso % (Auto) (0-2) % Neut # (Auto) (4455-1570) /uL Lymph # (Auto) (4346-7558) /uL Bland # (Auto) (0-900) /uL Eos # (Auto) (0-450) /uL Baso # (Auto) (0-100) /uL VBG pH 7.35 (7.33-7.43) VBG pCO2 61.0 H (45-50) mmHg VBG pO2 42 (35-45) mmHg VBG HCO3 33 H (24-28) mmol/L VBG Total CO2 33 H (24-29) mmol/L VBG O2 Saturation 74 (70-75) % VBG Base Excess 5.8 H (0-4) mmol/L Sodium (137-145) mmol/L Potassium (3.4-5.1) mmol/L Chloride (98-107) mmol/L Carbon Dioxide (22-32) mmol/L BUN (9-20) mg/dL Creatinine (0.66-1.25) mg/dL Estimated GFR (>60) mL/min BUN/Creatinine Ratio (6-22) Glucose (70-99) mg/dL Lactate 0.9 (0.7-2.1) mmol/L Calcium (8.4-10.2) mg/dL Total Bilirubin (0.2-1.3) mg/dL AST (17-59) IU/L ALT (<50) IU/L Alkaline Phosphatase (38-126) U/L Ammonia (9-30) umol/L Total Protein (6.3-8.2) g/dL Albumin (3.5-5.0) g/dL Globulin (1.7-4.1) g/dL Albumin/Globulin Ratio (1.0-2.8) Lipase (23-300) U/L Urine Color Urine Appearance Urine pH (4.5-8.0) Ur Specific [place] (1.000-1.035) Urine Protein (Negative) Urine Glucose (UA) (Negative) g/dL Urine Ketones (NEGATIVE) Urine Occult Blood (Negative) Urine Nitrate (Negative) Urine Bilirubin (NEGATIVE) Urine Urobilinogen (0.2) E.U./dL Ur Leukocyte Esterase (NEGATIVE) Urine RBC (0-5/HPF) Urine WBC (0-5/HPF) Ur Squamous Epith Cells (0-5/HPF) Urine Bacteria (None) Urine Mucus (Negative) Ur Culture Indicated? Vol Urine Centrifuged Imaging Data CT scan - abdomen/pelvis: Radiologist's Impression: [address] [address] [address] Scan Report Signed Patient: James Rendon MR#: [id number] : 1960 Acct:[id number] Age/Sex: 64 / M Date of Service: 04/11/25 Loc: ED Accession Number: [id number] Procedure: CT abdomen pelvis w con Ordering Provider: Delgado Ledesma D.O. PROCEDURE: CT ABDOMEN PELVIS W CON INDICATIONS: follow-up xray results, signs of SBO [MEB] TECHNIQUE: After the administration of intravenous contrast, axial sections acquired from the lung bases to the pubic symphysis. Coronal and sagittal reformats were performed. For radiation dose reduction, the following was used: automated exposure control, adjustment of mA and/or kV according to patient size. COMPARISON: [facility], CT, CT ABDOMEN PELVIS W CON, 03/20/2025, 17:26. [facility], CR, XR ACUTE ABDOMEN SERIES, 04/11/2025, 5:15. FINDINGS: Image quality: Diagnostic Lower chest: Unremarkable lung bases. Normal heart size. Liver: Unremarkable Gallbladder and biliary system: Unremarkable, nondilated Pancreas: No ductal dilation Spleen: Nonenlarged Adrenals: No discrete nodules Kidneys: Left ureteral stent in place, with the pigtail in the proximal calyx. Possible kinking is seen distally. Moderate left hydronephrosis. There is a 9 mm stone in the distal ureter. Delayed left nephrogram. No right hydronephrosis. No solid renal mass. Vessels and lymph nodes: The main portal vein is patent. No abdominal aortic aneurysm. No pathologic lymphadenopathy by size criteria. Bowel and peritoneum: No acute small bowel obstruction. Overall moderate degree of fecal loading. No drainable abscess or ascites Body wall: Small fat containing umbilical hernia Pelvis: Mild diffuse bladder wall thickening. Heterogeneous enlarged prostate, not well assessed on CT Bones: No aggressive appearing osseous abnormality. Left sacroiliac ankylosis. IMPRESSION: No acute small bowel obstruction. Moderate fecal loading. Left moderate hydroureteronephrosis secondary to a 9 mm distal ureter stone. Left nephrostomy tube is present, with pigtail in the proximal calyx. Correlate with output to determine drainage. Kinking is possible. Mild diffuse bladder wall thickening, correlate urinalysis for any superimposed infection. Other findings above. Discussed with ED physician. Dictated by: Jose Alonso M.D. on 04/11/2025 at 8:13 Approved by: Jose Alonso M.D. on 04/11/2025 at 8:19 [facility] Narrative Medical decision making narrative: All lab work, vital signs, nurse triage note, previous ER visits, and all imaging modalities including x-rays and CT scans have been reviewed. [place] [address] with a left shift. Sodium 135 glucose 120 urine positive for nitrates urine WBC 3200 5-10 RBC and +1 leuk. Blood cultures obtained 2 g of Rocephin given and 1 L LR bolus x1. Differential diagnosis includes sepsis, UTI, kidney stone, kidney abscess, tube displacement. 04/11/25, 0700, Miranda. Sign-out from Dr. Ledesma. CT abdomen and pelvis pending. 64-year-old male with known large 9 mm left ureteral stone, has left-sided nephrostomy tube in place, awaiting [facility] follow up pending insurance approval. Has increased right-sided flank pain and pain toward the testicle, has had recent CT scans x3 in the last couple of months. Initial imaging [facility] here showed small bowel loops possible evolving SBO. CT abdomen and pelvis therefore sent. White blood cell count 40583 elevated, urine suspicious for infection. IV ceftriaxone 2g given. Normotensive at this time. CT abdomen and pelvis results pending. Assumed care. Abdominal x-ray series. Impressions: ?Prominent loops of small bowel with scattered air-fluid levels present, findings may be related to evolving small bowel obstruction. Recommend CT of the abdomen and pelvis further evaluation. ? See tele radiology report. CT abdomen and pelvis. Impressions: ?Moderate left hydroureteronephrosis and perinephric/periureteral inflammatory changes with an obstructing 9 mm mid ureteral calculus. Percutaneous left nephrostomy tube present. Incidental findings.. See tele radiology. We will reach out to tele radiology, as there was no mention of intestinal findings mentioned on the abdominal x-ray series. We will ask for an addendum to clarify intestinal findings on CT. CT report discussed with hospitalist Dr. Giang, who requests transfer to Urology higher level of care. Recommendation relayed to patient/, who stated that initial procedure was done March 13, 2025 [facility], and [facility] We will reach out to [facility], also waiting for clarification on CT scan about intestinal component findings to see if General surgery needs to be involved. We will transfer to Urology/general surgery capable facility, possibly [facility]. Keep NPO. No call back from tele radiology, discussed case with [facility], asked for revised updated CT abdomen and pelvis reading to address the intestinal findings not mentioned on tele Rad report. CT abdomen and pelvis Reagan reading, no bowel obstruction. Left-sided nephrostomy tube and obstructing ureteral stone 9 mm again mentioned, with inflammatory changes. See imported radiology report. We will reach out to [facility] regarding transfer versus close follow up, disposition plan. [phone], case discussed with [facility] intake, await call back 1034, case discussed with Urology [facility], left nephrostomy tube is draining, no emergent transfer indication at this time, still would have elective stone removal and elective catheter removal when appropriate. Agrees with antibiotic ceftriaxone could consider cefdinir as an outpatient 10 day course. Follow up with their service or with service indicated by [facility]. IV ceftriaxone given prior. Prescription sent for 10 day course cefdinir to his pharmacy. Home with family. Discharge Plan Departure Patient Disposition: Home Clinical Impression: Urinary tract infection, Left ureteral stone Activity Restrictions/Additional Instructions: History of known large left 9 mm ureteral stone, and nephrostomy tube on the left side that seems to be draining, that was placed last month [facility], awaiting outpatient [facility] approval for in network outpatient stone treatment and eventual nephrostomy tube removal. Increased discomfort today. Abdominal x-rays obtained were concerning for small bowel obstruction. Another CT scan was therefore obtained, no small bowel obstruction was confirmed, there is again present left-sided ureteral stone, with nephrostomy tube in place. There is inflammatory changes around the kidney. Urinalysis was suspicious for infection. IV ceftriaxone antibiotic was initiated for possible urine infection. Case was discussed with [facility] Dr. Smith on-call, who felt that since there was draining nephrostomy tube there was no surgical emergency for emergent transfer at this time. Advises follow up for outpatient treatment with [facility] approved in network provider at this time. Further antibiotics indicated, we will send prescription for cefdinir course of 10 day antibiotics. Refill of your pain medication. Consider use of [id number] magnesium citrate and/or MiraLax to help keep your bowels loose, given that opiate medications can cause constipation. Follow up with [facility], call the [facility] system tomorrow. Follow up with your primary care provider tomorrow to help coordinate care with [facility] system. Return earlier to this/nearest emergency department for any change worsening symptoms or any concerns prior. Prescriptions: New cefdinir 300 mg capsule 300 mg PO BID 10 Days Qty: 20 0RF cefdinir 300 mg capsule 300 mg PO BID 10 Days Qty: 20 0RF oxycodone-acetaminophen 5-325 mg tablet 1 tab PO Q6H PRN (Reason: pain) Qty: 14 0RF No Action ibuprofen 200 mg Capsule 400 mg PO Q6H clobetasol 0.05 % ointment topical BID PRN (Reason: Rash) oxycodone 5 mg tablet 5 mg PO Q8H PRN (Reason: pain (scale score 7-10)) Qty: 10 0RF tamsulosin 0.4 mg capsule 0.4 mg PO DAILY Qty: 60 0RF Referrals: Steffen Shell MD [Primary Care Provider] - Stand Alone Forms: Patient Portal/API/Survey
[2025-04-11 05:24] LABS: Add Manual Diff / Slide Review NO; Basophils Absolute Auto 100 /uL (0-100); Basophils Percent Auto 0.2 % (0-2); Eosinophils Absolute Auto 0 /uL (0-450); Eosinophils Percent Auto 0.1 % (2-4); Hematocrit 37.7 % (41-53); Hemoglobin 12.3 g/dL (13.5-17.5); Lymphocytes Absolute Auto 1600 /uL (1100-4500); Lymphocytes Percent Auto 7.2 % (25-40); Mean Corpuscular HGB Conc 32.5 % (30-36); Mean Corpuscular Hemoglobin 26.7 PG (26-34); Monocytes Absolute Auto 1600 /uL (0-900); Monocytes Percent Auto 7.2 % (3-14); Neutrophils Absolute Auto 19300 /uL (1500-7000); Neutrophils Percent Auto 85.3 % (50-75); Platelet Count 239 X10^3/uL (150-400); Red Cell Distribution Width 15.2 % (11.6-14.8); White Blood Cell Count 22.6 X10^3/uL (4.5-11.0)
--- NOTE | 2025-04-11 05:28 | PC.NURSE ---
Pt ambulatory to imaging with microbiological laboratory technician
[2025-04-11 05:29] LABS: Alanine Aminotransferase 24 IU/L (<50); Albumin Globulin Ratio 1.1 (1.0-2.8); Alkaline Phosphatase 112 U/L (38-126); Aspartate Aminotransferase 24 IU/L (17-59); BUN Creatinine Ratio 12.2 (6-22); Bilirubin Total 0.6 mg/dL (0.2-1.3); Blood Urea Nitrogen 11 mg/dL (9-20); Calcium 9.1 mg/dL (8.4-10.2); Carbon Dioxide 27 mmol/L (22-32); Chloride 100 mmol/L (98-107); Estimated Glomerular Filt Rate > 60 mL/min (>60); Globulin 3.6 g/dL (1.7-4.1); Glucose 120 mg/dL (70-99); HEMOLYSIS < 15 (0-50); Lipase 61 U/L (23-300); Sodium 135 mmol/L (137-145); Total Protein 7.6 g/dL (6.3-8.2)
[2025-04-11] MEDS: SODIUM CHLORIDE 0.9% 1,000 ML 1000 ML IV (05:30)
[2025-04-11] MEDS: HYDROMORPHONE 1 MG INJ IV ×3 (05:31→11:42)
[2025-04-11 05:34] LABS: Bilirubin Urine UA NEGATIVE (NEGATIVE); Glucose Urine UA NEGATIVE (Negative); Ketones Urine UA 1+ (NEGATIVE); Leukocyte Esterase Urine UA 1+ (NEGATIVE); Nitrite Urine UA POSITIVE (Negative); Occult Blood Urine UA 1+ (Negative); Protein Urine UA 2+ (Negative)
[2025-04-11 05:36] LABS: Appearance Urine UA CLOUDY; Color Urine UA Dark Yellow
[2025-04-11 05:37] LABS: Bacteria Urine Many (>30); Mucus Urine 1+ (Negative); RBC Urine 5-10/HPF (0-5/HPF); Squamous Epithelial Cell Urine 0-1 /HPF (0-5/HPF); Urine Volume 10mL (spun); WBC Urine 30-100/HPF (0-5/HPF)
[2025-04-11 05:38] LABS: Culture Indicated Urine Specimen Cultured
[2025-04-11 05:45] LABS: Ammonia (NH3) < 9 umol/L (9-30)
--- NOTE | 2025-04-11 06:29 | DI.CT.S_ITS ---
PROCEDURE: CT ABDOMEN PELVIS W CON INDICATIONS: follow-up xray results, signs of SBO [MEB] TECHNIQUE: After the administration of intravenous contrast, axial sections acquired from the lung bases to the pubic symphysis. Coronal and sagittal reformats were performed. For radiation dose reduction, the following was used: automated exposure control, adjustment of mA and/or kV according to patient size. COMPARISON: [facility], CT, CT ABDOMEN PELVIS W CON, 03/20/2025, 17:26. [facility], CR, XR ACUTE ABDOMEN SERIES, 04/11/2025, 5:15. FINDINGS: Image quality: Diagnostic Lower chest: Unremarkable lung bases. Normal heart size. Liver: Unremarkable Gallbladder and biliary system: Unremarkable, nondilated Pancreas: No ductal dilation Spleen: Nonenlarged Adrenals: No discrete nodules Kidneys: Left ureteral stent in place, with the pigtail in the proximal calyx. Possible kinking is seen distally. Moderate left hydronephrosis. There is a 9 mm stone in the distal ureter. Delayed left nephrogram. No right hydronephrosis. No solid renal mass. Vessels and lymph nodes: The main portal vein is patent. No abdominal aortic aneurysm. No pathologic lymphadenopathy by size criteria. Bowel and peritoneum: No acute small bowel obstruction. Overall moderate degree of fecal loading. No drainable abscess or ascites Body wall: Small fat containing umbilical hernia Pelvis: Mild diffuse bladder wall thickening. Heterogeneous enlarged prostate, not well assessed on CT Bones: No aggressive appearing osseous abnormality. Left sacroiliac ankylosis. IMPRESSION: No acute small bowel obstruction. Moderate fecal loading. Left moderate hydroureteronephrosis secondary to a 9 mm distal ureter stone. Left nephrostomy tube is present, with pigtail in the proximal calyx. Correlate with output to determine drainage. Kinking is possible. Mild diffuse bladder wall thickening, correlate urinalysis for any superimposed infection. Other findings above. Discussed with ED physician. Dictated by: Jose Alonso M.D. on 04/11/2025 at 8:13 Approved by: Jose Alonso M.D. on 04/11/2025 at 8:19
[2025-04-11] MEDS: LACTATED RINGERS 1,000 ML 1000 ML IV (06:39)
[2025-04-11] MEDS: cefTRIAXone 2,000 MG in SODIUM CHLORIDE 0.9% 100 ML 200 MG IV (06:39)
[2025-04-11 06:53] LABS: Lactate (Lactic Acid) 0.9 mmol/L (0.7-2.1)
--- NOTE | 2025-04-11 07:38 | PC.NURSE ---
Assumed care of pt at 0700. Pt used urinal independently and was only able to produce <75cc of dark yellow urine. States that pain has mostly resolved except when he is straining to urinate. A&Ox4.
--- NOTE | 2025-04-11 10:37 | PC.NURSE ---
Pt states that he is unable to urinate. C/o 6/10 abd pain that he describes as pressure and is tender to touch. 450cc on bladder scan and 100cc of dark foul smelling urine out in nephrostomy bag. Dr Dill notified of pt discomfort and bladder volume. RN inquired about pain medications & possible catheter placement to drain bladder per pt discomfort level. No new orders at this time.
== END 2025-04-11 12:00 | disposition home or self-care (01) ==
PROVIDERS: Family Medicine; Emergency Provider Emergency Medicine; PCP Internal Medicine
DX: N39.0 Urinary tract infection, site not specified (principal); N20.1 Calculus of ureter; Z87.442 Personal history of urinary calculi
CPT/HCPCS: 36415; 74022; 74177; 80053; 81001; 82140; 82805; 83605; 83690; 85025; 87040; 87077; 87086; 87186; 96361; 96365; 96375; 96376; 99284; J0696; J1171; Q9967